=== PATIENT | female | born 1965 | race Caucasian/White ===

== ENCOUNTER → 2018-07-09 | Outpatient (CLI) | payer MEDICAID ==
[~2018-07-09] MED LIST: AZIT500T PO; BENZ0.5T3 PO; CRB200T PO; DIVA125T3 PO; DULO30CA PO; HYDR-3583 PO; HYDR-4226 PO; LURA40TA PO; LVT.1T PO; MEDR150D4 IM; MOTRIN 600MG PF; ONDA8TAB9 PO; ONDN4T PO; OXCA300T PO; RISP4TAB PO; RISP4TAB34 PO
--- NOTE | 2018-07-09 12:00 | Diagnostic Imaging Report ---
INDICATION: Routine screening. COMPARISON: Comparison is made with prior mammograms from 08/16/2016 and 06/14/2015. TECHNIQUE: 2D and 3D bilateral screening mammography was performed with computer-aided detection (CAD) system. FINDINGS: Scattered fibroglandular densities are identified bilaterally. The parenchymal pattern is stable. No dominant mass or malignant-appearing microcalcifications are seen. There are benign calcifications bilaterally. The axillae are unremarkable. IMPRESSION: No mammographic features suspicious for malignancy are identified. ACR BI-RADS Category 2: Benign findings. Result letter will be mailed to the patient. Note: At least 10% of breast cancer is not imaged by mammography. Dictated by: Dictated on workstation # [id number]
== END ==
LOC: RAD 09:26
PROVIDERS: ATTEND Nurse Practitioner Community Health
DX: Z12.31 Encounter for screening mammogram for malignant neoplasm of breast (principal)
CPT/HCPCS: 77067

== ENCOUNTER → 2019-07-21 | Outpatient (CLI) | payer MEDICAID ==
--- NOTE | 2019-07-21 15:36 | Diagnostic Imaging Report ---
INDICATION: Routine screening. COMPARISON: Comparison is made with prior mammograms from 07/09/2018 and 08/16/2016. 2-D and 3-D bilateral screening mammography was performed. The current study was also evaluated with a Computer Aided Detection (CAD) system. 3-D tomosynthesis was also performed and reviewed. FINDINGS: Scattered fibroglandular densities are identified bilaterally. There are benign calcifications bilaterally. No mass or malignant-appearing microcalcifications are seen. Axillae are unremarkable. IMPRESSION: No mammographic features suspicious for malignancy are identified. ACR BI-RADS Category 2: Benign findings. Result letter will be mailed to the patient. Note: At least 10% of breast cancer is not imaged by mammography. Dictated by: Dictated on workstation # [id number]
== END ==
LOC: RAD 13:07
PROVIDERS: ATTEND Nurse Practitioner Community Health
DX: Z12.31 Encounter for screening mammogram for malignant neoplasm of breast (principal)
CPT/HCPCS: 77067

== ENCOUNTER → 2020-08-09 | Outpatient (CLI) | payer MEDICAID ==
--- NOTE | 2020-08-10 09:50 | Diagnostic Imaging Report ---
INDICATION: Routine screening. COMPARISON: 07/21/2019 and 07/09/2018. TECHNIQUE: 2D and 3D bilateral screening mammography was performed with CAD. FINDINGS: Scattered fibroglandular densities are identified bilaterally. The parenchymal pattern is stable. There are benign calcifications in both breasts. No mass or malignant appearing microcalcifications are seen. The axillae are unremarkable. IMPRESSION: No mammographic features suspicious for malignancy are identified. ACR BI-RADS Category 2: Benign findings. Result letter will be mailed to the patient. Note: At least 10% of breast cancer is not imaged by mammography. Dictated by: Dictated on workstation # [id number]
== END ==
LOC: RAD 13:45
PROVIDERS: ATTEND Nurse Practitioner Community Health
DX: Z12.31 Encounter for screening mammogram for malignant neoplasm of breast (principal)
CPT/HCPCS: 77063; 77067

== ENCOUNTER → 2022-05-25 | Outpatient (CLI) | payer MEDICAID ==
--- NOTE | 2022-05-25 13:16 | Diagnostic Imaging Report ---
INDICATION: RT ANKLE PAIN AND EDEMA COMPARISON: None. FINDINGS: 3 views of the right ankle were obtained. There is no acute fracture or dislocation. No focal osseous lesions are seen. There is moderate lateral soft tissue swelling. There are no radiopaque foreign bodies. IMPRESSION: 1. Moderate lateral soft tissue swelling, but no radiographic evidence of acute fracture or dislocation of the right ankle. Dictated by: Dictated on workstation # [id number]
== END ==
LOC: RAD 11:01
PROVIDERS: ATTEND Nurse Practitioner Family
DX: M25.571 Pain in right ankle and joints of right foot (principal); R60.0 Localized edema
CPT/HCPCS: 73610

== ENCOUNTER 2022-10-03 14:35 | Emergency (ER) | payer MEDICAID ==
[~2022-10-03] VITALS: Ht 170.1 cm; Wt 52.1 kg
[2022-10-03 16:00] LABS: BILIRUBIN,URINE NEGATIVE (NEGATIVE); CLARITY,URINE SL CLOUDY; COLOR,URINE YELLOW; GLUCOSE, URINE (UA) NEGATIVE (NEGATIVE); KETONES,URINE TRACE (NEGATIVE); LEUKOCYTE ESTERASE ,URINE NEGATIVE (NEGATIVE); NITRITE,URINE NEGATIVE (NEGATIVE); PH,URINE 5.5 (5-9); PROTEIN,URINE NEGATIVE (NEGATIVE)
[2022-10-03 16:03] LABS: ALBUMIN 3.6 GM/DL (3.2-4.5); POTASSIUM 4.9 MMOL/L (3.6-5.0)
[2022-10-03 16:04] LABS: CALCIUM 9.3 MG/DL (8.5-10.1)
[2022-10-03 16:05] LABS: TOTAL PROTEIN 7.1 GM/DL (6.4-8.2)
[2022-10-03 16:06] LABS: HEMOGLOBIN 10.5 g/dL (11.5-16.0); MONOCYTES # (AUTO) 0.2 10^3/uL (0.0-1.0)
[2022-10-03 16:07] LABS: BACTERIA,URINE NEGATIVE /HPF; BASOPHILS % (AUTO) 0 % (0-10); BILIRUBIN,TOTAL 0.2 MG/DL (0.1-1.0); EOSINOPHILS % (AUTO) 2 % (0-10); HEMATOCRIT 34 % (35-52); LYMPHOCYTES % (AUTO) 51 % (12-44); MEAN CORPUSCULAR HEMOGLOBIN 29 pg (25-34); MEAN CORPUSCULAR HGB CONC 31 g/dL (32-36); MEAN CORPUSCULAR VOLUME 93 fL (80-99); MEAN PLATELET VOLUME 12.2 fL (9.0-12.2); MONOCYTES % (AUTO) 10 % (0-12); NEUTROPHILS # (AUTO) 0.7 10^3/uL (1.8-7.8); NEUTROPHILS % (AUTO) 37 % (42-75); SQUAMOUS EPITHELIAL CELL,UR 0-2 /HPF
[2022-10-03 16:08] LABS: PLATELET COUNT 57 10^3/uL (130-400)
[2022-10-03 16:09] LABS: CREATININE SERUM 1.08 MG/DL (0.60-1.30)
[2022-10-03 16:13] LABS: BAND NEUTROPHILS 0 %; BASOPHILS % (MANUAL) 0 %; EOSINOPHILS % (MANUAL) 0 %; LYMPHOCYTES % (MANUAL) 52 %; MONOCYTES % (MANUAL) 14 %; NEUTROPHILS % (MANUAL) 34 %; POLYCHROMASIA SLIGHT
[2022-10-03 16:14] LABS: HYPOCHROMASIA SLIGHT; MICROCYTOSIS SLIGHT; TARGET CELLS SLIGHT
--- NOTE | 2022-10-03 17:13 | ED General ---
General Chief Complaint: - Reproductive Stated Complaint: ABD PAIN Nursing Triage Note: ARRIVES FROM [facility] WITH SYMPTOMS OF FREQUENT URINATION AND CHANGE IN MENTAL STATUS. CAREGIVER STATES PATIENT HAS NOT BEEN ACTING HERSELF SINCE YESTERDAY, HAS BEEN URINATING FREQUENTLY, ALSO HAS A DECREASED APPETITE Source of Information: Patient Exam Limitations: No Limitations History of Present Illness Date Seen by Provider: Oct 03, 2022 Time Seen by Provider: 14:50 Initial Comments Patient is a 57-year-old female who presents to the emergency department along with her caregiver for evaluation of frequent urination, change in mental status, and some mild generalized weakness that began yesterday. Caregiver states patient has also had a decreased appetite. They states she commonly urinates frequently but this has been much more often than normal over the last 24 hours. Patient has not had any nausea/vomiting/diarrhea, fever, URI symptoms. Patient is still ambulatory although she does seem to walk slightly more unsteady and slower than normal. Patient does have a history of MR and schizophrenia. Caregiver states patient is typically pretty independent and does not require much assistance if any with ambulation. Allergies and Home Medications Allergies Coded Allergies: Penicillins (Verified Allergy, Unknown, 12/20/15) diphenhydramine HCl (Verified Allergy, Unknown, 12/20/15) Uncoded Allergies: chlorine (Allergy, Unknown, 12/20/15) Patient Home Medication List Home Medication List Reviewed: Yes Carbamazepine (Tegretol) 200 Mg Tablet, 1 TAB PO BID, (Reported) Entered as Reported by: AMARJIT FLORES on 04/03/12 1113 Divalproex Sodium (Divalproex Sodium) 125 Mg Tablet.dr, 5 CAP PO BID, (Reported) Entered as Reported by: AVTAR BRAND on 01/20/12 1216 Hydrocodone Bit/Acetaminophen (Lortab 5 Mg) 1 Tab Tab, 1-2 EA PO Q 4 - 6 HR PRN, (Reported) Entered as Reported by: RUPALI SHINE on 04/10/12 1136 Hydrocodone/Acetaminophen (Hydrocodone/Acetaminophen 5 MG/325 MG TAB) 1 Each Tablet, 1 EACH PO Q4H PRN for PAIN Prescribed by: TOÑO LIRIANO on 12/20/15 1659 Levothyroxine Sodium (Levothyroxine 100 Mcg Tab) 100 Mcg Tablet, 1 EACH PO DAILY AT 4 PM, (Reported) Entered as Reported by: AVTAR BRAND on 01/20/12 1216 Medroxyprogesterone Acet (Medroxyprogesterone Acetate) 150 Mg/1 Ml Disp.syrin, 150 MG IM Q 3 months, (Reported) Entered as Reported by: AVTAR BRAND on 01/20/12 1212 Ondansetron (Zofran Odt) 8 Mg Tab.rapdis, 8 MG PO Q6H PRN for NAUSEA/VOMITING Prescribed by: TOÑO LIRIANO on 12/20/15 1659 Ondansetron Hcl (Zofran) 4 Mg Tab, 1 TAB PO Q6H PRN, (Reported) Entered as Reported by: AMARJIT FLORES on 04/03/12 1113 Oxybutynin Chloride (Oxybutynin Chloride) 5 Mg Tablet, 5 MG PO BID Prescribed by: Eusebio Le on 10/03/22 1727 Risperidone (Risperdal) 4 Mg Tab.rapdis, 4 MG PO DAILY PRN, (Reported) Entered as Reported by: AVTAR BRAND on 01/20/12 1218 Risperidone (Risperidone) 4 Mg Tablet, 4 MG PO BID, (Reported) Entered as Reported by: AMARJIT FLORES on 04/03/12 1113 [Motrin 600MG] , 600 MG PF Q6H, (Reported) Entered as Reported by: RUPALI SHINE on 04/10/12 1138 Review of Systems Review of Systems Constitutional: no symptoms reported Respiratory: no symptoms reported Cardiovascular: no symptoms reported Gastrointestinal: no symptoms reported Genitourinary: see HPI, frequency Skin: no symptoms reported Psychiatric/Neurological: No Symptoms Reported Hematologic/Lymphatic: No Symptoms Reported Immunological/Allergic: no symptoms reported Past Zedcshp-Mhktwz-Vcmnqd Hx Patient Social History Tobacco Use?: No Use of E-Cig and/or Vaping dev: No Substance use?: No Alcohol Use?: No Pt feels they are or have been: No Immunizations Up To Date Influenza Vaccine Up-to-Date: No; Not Current First/Initial COVID19 Vaccinat: 2020 Second COVID19 Vaccination José Antonio: 2020 Past Medical History Surgery/Hospitalization HX: , SCHITZOPHRENIA Reproductive Disorders: No Physical Exam Vital Signs Vital Signs - First Documented 10/03/22 14:50 Temp 35.6 Pulse 75 Resp 18 B/P (MAP) 129/71 (90) Pulse Ox 95 O2 Delivery Room Air Capillary Refill : Less Than 3 Seconds Height, Weight, BMI Height: 5'1.00" Weight: 168lbs. 6.0oz. [id number]; 18.00 BMI Method:Stated General Appearance: No Apparent Distress, WD/WN HEENT: PERRL/EOMI, TMs Normal, Normal ENT Inspection, Pharynx Normal Respiratory: Chest Non Tender, Lungs Clear, Normal Breath Sounds, No Accessory Muscle Use, No Respiratory Distress Cardiovascular: Regular Rate, Rhythm Neurologic/Psychiatric: Alert, Oriented x3, No Motor/Sensory Deficits, Normal Mood/Affect Skin: Normal Color, Warm/Dry Progress/Results/Core Measures Suspected Sepsis SIRS Temperature: Pulse: 75 Respiratory Rate: 18 Laboratory Tests 10/03/22 15:56: White Blood Count 2.0L Blood Pressure 129 /71 Mean: 90 Laboratory Tests 10/03/22 15:56: Creatinine 1.08, Platelet Count 57L, Total Bilirubin 0.2 Results/Orders Lab Results Laboratory Tests Test 10/03/22 15:56 Range/Units White Blood Count 2.0 L 4.3-11.0 10^3/uL Red Blood Count 3.62 L 3.80-5.11 10^6/uL Hemoglobin 10.5 L 11.5-16.0 g/dL Hematocrit 34 L 35-52 % Mean Corpuscular Volume 93 80-99 fL Mean Corpuscular Hemoglobin 29 25-34 pg Mean Corpuscular Hemoglobin Concent 31 L 32-36 g/dL Red Cell Distribution Width 16.3 H 10.0-14.5 % Platelet Count 57 L 130-400 10^3/uL Mean Platelet Volume 12.2 9.0-12.2 fL Immature Granulocyte % (Auto) 1 % Neutrophils (%) (Auto) 37 L 42-75 % Lymphocytes (%) (Auto) 51 H 12-44 % Monocytes (%) (Auto) 10 0-12 % Eosinophils (%) (Auto) 2 0-10 % Basophils (%) (Auto) 0 0-10 % Neutrophils # (Auto) 0.7 L 1.8-7.8 10^3/uL Lymphocytes # (Auto) 1.0 1.0-4.0 10^3/uL Monocytes # (Auto) 0.2 0.0-1.0 10^3/uL Eosinophils # (Auto) 0.0 0.0-0.3 10^3/uL Basophils # (Auto) 0.0 0.0-0.1 10^3/uL Immature Granulocyte # (Auto) 0.0 0.0-0.1 10^3/uL Neutrophils % (Manual) 34 % Lymphocytes % (Manual) 52 % Monocytes % (Manual) 14 % Eosinophils % (Manual) 0 % Basophils % (Manual) 0 % Band Neutrophils 0 % Percent Immature Platelet Fraction 11.4 H 0.0-7.6 % Polychromasia SLIGHT Hypochromasia SLIGHT Microcytosis SLIGHT Target Cells SLIGHT Urine Color YELLOW Urine Clarity SL CLOUDY Urine pH 5.5 5-9 Urine Specific [place] 1.025 H 1.016-1.022 Urine Protein NEGATIVE NEGATIVE Urine Glucose (UA) NEGATIVE NEGATIVE Urine Ketones TRACE H NEGATIVE Urine Nitrite NEGATIVE NEGATIVE Urine Bilirubin NEGATIVE NEGATIVE Urine Urobilinogen 0.2 < = 1.0 MG/DL Urine Leukocyte Esterase NEGATIVE NEGATIVE Urine RBC (Auto) NEGATIVE NEGATIVE Urine RBC NONE /HPF Urine WBC NONE /HPF Urine Squamous Epithelial Cells 0-2 /HPF Urine Crystals NONE /LPF Urine Bacteria NEGATIVE /HPF Urine Casts NONE /LPF Urine Mucus NEGATIVE /LPF Urine Culture Indicated NO Sodium Level 145 135-145 MMOL/L Potassium Level 4.9 3.6-5.0 MMOL/L Chloride Level 109 H 98-107 MMOL/L Carbon Dioxide Level 28 21-32 MMOL/L Anion Gap 8 5-14 MMOL/L Blood Urea Nitrogen 31 H 7-18 MG/DL Creatinine 1.08 0.60-1.30 MG/DL Estimat Glomerular Filtration Rate 60 BUN/Creatinine Ratio 29 Glucose Level 71 70-105 MG/DL Calcium Level 9.3 8.5-10.1 MG/DL Corrected Calcium 9.6 8.5-10.1 MG/DL Total Bilirubin 0.2 0.1-1.0 MG/DL Aspartate Amino Transf (AST/SGOT) 73 H 5-34 U/L Alanine Aminotransferase (ALT/SGPT) 78 H 0-55 U/L Alkaline Phosphatase 122 40-136 U/L Total Protein 7.1 6.4-8.2 GM/DL Albumin 3.6 3.2-4.5 GM/DL My Orders Orders - EUSEBIO LE [employer]ICER Cbc And Manual Diff (10/03/22 15:52) Comprehensive Metabolic Panel (10/03/22 15:52) Ua Culture If Indicated (10/03/22 15:52) Vital Signs/I&O 10/03/22 10/03/22 14:50 17:35 Temp 35.6 Pulse 75 76 Resp 18 18 B/P (MAP) 129/71 (90) 139/90 Pulse Ox 95 96 O2 Delivery Room Air Room Air Capillary Refill : Less Than 3 Seconds Blood Pressure Mean: 90 Progress Note : Progress Note Patient is nontoxic and well-hydrated on exam. Vital signs are reassuring. No adventitious lung sounds or increased work of breathing noted. No abdominal tenderness to palpation. Abdomen is not distended or rigid. Patient is able to answer questions. She is ambulatory without assistance. Orders placed for CBC, CMP, and urinalysis. CBC notable for leukopenia and thrombocytopenia. Patient is mildly anemic. Patient is neutropenic but ANC is not less than 500. CMP largely unremarkable. There are no systemic concerns for any infectious process. Urinalysis does not show any obvious evidence of UTI. I did speak with Dr. Alex with hematology who states patient would definitely need to follow-up with PCP in the near future for a recheck of her labs. She did not give any other acute recommendations. We will give patient a short course of oxybutynin to see if this improves the urinary frequency. I gave caregiver very strict return precautions for any worsening symptoms. Discussed importance of follow-up with PCP. Caregiver verbalized understanding. Departure Impression Primary Impression: Urinary frequency Additional Impressions: Leukopenia Qualified Codes: D72.819 - Decreased white blood cell count, unspecified Thrombocytopenia Disposition: HOME, SELF-CARE Condition: Stable Departure-Patient Inst. Decision time for Depature: 17:10 Referrals: KIRAN HORTA MD (PCP/Family) Primary Care Physician Patient Instructions: Essential Thrombocythemia, Neutropenia (DC) Scripts Oxybutynin Chloride (Oxybutynin Chloride) 5 Mg Tablet 5 MG PO BID for 3 Days, #6 TAB 0 Refills Prov: EUSEBIO LE APRN 10/03/22 EUSEBIO LE APRN Oct 03, 2022 17:13
[2022-10-03] MEDS ORDERED: OXYB5TAB13 PO (17:27)
[2022-10-03 17:35] VITALS: BP 139/90
== END 2022-10-03 17:35 | disposition home or self-care (01) ==
LOC: EDUNIT# 14:35 → ER 14:37
DX: R35.0 Frequency of micturition (principal); D72.819 Decreased white blood cell count, unspecified; D69.6 Thrombocytopenia, unspecified
CPT/HCPCS: 36415; 80053; 81000; 85007; 85027; 99282

== ENCOUNTER 2022-10-05 13:39 | Inpatient (IN) | payer MEDICAID ==
[~2022-10-05] VITALS: Ht 226 cm; Wt 52.0 kg
[~2022-10-05 13:39] MED LIST changes: +OXYB5TAB13 PO
[2022-10-05] MEDS ORDERED: CEFEPIME INJECTION 1,000 MG in NS (IVPB) 50 ML IV ONE (14:00)
--- NOTE | 2022-10-05 14:04 | ED General ---
General Stated Complaint: UNABLE TO STAND | DIZZY | FALLING DOWN Source of Information: Patient, Caregiver Exam Limitations: No Limitations (EUSEBIO LE APRN) History of Present Illness Date Seen by Provider: Oct 05, 2022 Time Seen by Provider: 13:50 Initial Comments Patient is a 57-year-old female with a past medical history of MR and schizo phrenia who presents to the emergency department with progressively worsening generalized weakness, confusion, and persistent urinary frequency. Patient was seen in this emergency department by me 2 days ago for some mildly altered mental status as well as urinary frequency according to patient's caregiver. At that time her laboratory evaluation was notable for leukopenia and thr ombocytopenia. Hematology was consulted and they recommend patient closely follow-up with PCP for repeat laboratory evaluation. Patient's urinalysis did not reveal any evidence of infection or other acute abnormality. Caregiver states patient has been significantly weaker today and has fallen 2 or 3 times. Patient did not hit her head and did not sustain any loss of consciousness. They were evaluated by patient's PCP yesterday where repeat blood work was obtained and an appointment was made to follow-up with hematology next week. (EUSEBIO LE APRN) Allergies and Home Medications Allergies Coded Allergies: Penicillins (Verified Allergy, Unknown, 12/20/15) diphenhydramine HCl (Verified Allergy, Unknown, 12/20/15) Uncoded Allergies: chlorine (Allergy, Unknown, 12/20/15) Patient Home Medication List Home Medication List Reviewed: Yes (EUSEBIO LE APRN) Carbamazepine (Tegretol) 200 Mg Tablet, 1 TAB PO BID, (Reported) Entered as Reported by: AMARJIT FLORES on 04/03/12 1113 Last Action: Continued Divalproex Sodium (Divalproex Sodium ER) 500 Mg Tab.er.24h, 500 MG PO DAILY, (Reported) Entered as Reported by: Tooite Marie on 10/05/221851 Last Action: Converted Divalproex Sodium (Divalproex Sodium ER) 500 Mg Tab.er.24h, 1,000 MG PO HS, (Reported) Entered as Reported by: Tootie Marie on 10/05/221851 Last Action: Converted Levothyroxine Sodium (Levothyroxine Sodium) 75 Mcg Tablet, 75 MCG PO DAILY, (Reported) Entered as Reported by: Tootie Marie on 10/05/221851 Last Action: Continued Oxybutynin Chloride (Oxybutynin Chloride) 5 Mg Tablet, 5 MG PO BID Prescribed by: Eusebio Le on 10/03/221726 Last Action: Continued Oxybutynin Chloride (Oxybutynin Chloride) 5 Mg Tablet, 5 MG PO DAILY, (Reported) Entered as Reported by: Tootie Marie on 10/05/221851 Last Action: Continued Risperidone (Risperidone) 3 Mg Tablet, 3 MG PO BID, (Reported) Entered as Reported by: Tootie Marie on 10/05/221851 Last Action: Converted Sertraline HCl (Sertraline HCl) 100 Mg Tablet, 100 MG PO DAILY, (Reported) Entered as Reported by: Tootie Marie on 10/05/221851 Last Action: Continued Trazodone HCl (Trazodone HCl) 150 Mg Tablet, 150 MG PO HS, (Reported) Entered as Reported by: Tootie Marie on 10/05/221851 Last Action: Continued Discontinued Medications Divalproex Sodium (Divalproex Sodium) 125 Mg Tablet.dr, 5 CAP PO BID, (Reported) Discontinued Reason: New Order Entered as Reported by: AVTAR BRAND on 01/20/126 Last Action: Discontinued Hydrocodone Bit/Acetaminophen (Lortab 5 Mg) 1 Tab Tab, 1-2 EA PO Q 4 - 6 HR PRN, (Reported) Discontinued Reason: No Longer Taking Entered as Reported by: RUPALI SHINE on 04/10/12 1136 Last Action: Discontinued Hydrocodone/Acetaminophen (Hydrocodone/Acetaminophen 5 MG/325 MG TAB) 1 Each Tablet, 1 EACH PO Q4H PRN for PAIN Discontinued Reason: No Longer Taking Prescribed by: TOÑO LIRIANO on 12/20/15 3799 Last Action: Discontinued Levothyroxine Sodium (Levothyroxine 100 Mcg Tab) 100 Mcg Tablet, 1 EACH PO DAILY AT 4 PM, (Reported) Discontinued Reason: New Order Entered as Reported by: AVTAR BRAND on 01/20/126 Last Action: Discontinued Medroxyprogesterone Acet (Medroxyprogesterone Acetate) 150 Mg/1 Ml Disp.syrin, 150 MG IM Q 3 months, (Reported) Discontinued Reason: No Longer Taking Entered as Reported by: AVTAR BRAND on 01/20/12 1212 Last Action: Discontinued Ondansetron (Zofran Odt) 8 Mg Tab.rapdis, 8 MG PO Q6H PRN for NAUSEA/VOMITING Discontinued Reason: No Longer Taking Prescribed by: TOÑO LIRIANO on 12/20/15 1659 Last Action: Discontinued Ondansetron Hcl (Zofran) 4 Mg Tab, 1 TAB PO Q6H PRN, (Reported) Discontinued Reason: No Longer Taking Entered as Reported by: AMARJIT FLORES on 04/03/12 1113 Last Action: Discontinued Risperidone (Risperdal) 4 Mg Tab.rapdis, 4 MG PO DAILY PRN, (Reported) Discontinued Reason: No Longer Taking Entered as Reported by: AVTAR BRAND on 01/20/12 1218 Last Action: Discontinued Risperidone (Risperidone) 4 Mg Tablet, 4 MG PO BID, (Reported) Discontinued Reason: New Order Entered as Reported by: AMARJIT FLORES on 04/03/12 1113 Last Action: Discontinued [Motrin 600MG] , 600 MG PF Q6H, (Reported) Discontinued Reason: No Longer Taking Entered as Reported by: RUPALI SHINE on 04/10/12 1138 Last Action: Discontinued Review of Systems Review of Systems Constitutional: see HPI, chills, weakness EENTM: no symptoms reported Respiratory: no symptoms reported Cardiovascular: no symptoms reported Gastrointestinal: no symptoms reported Genitourinary: no symptoms reported Musculoskeletal: no symptoms reported Skin: no symptoms reported Psychiatric/Neurological: No Symptoms Reported Hematologic/Lymphatic: No Symptoms Reported Immunological/Allergic: no symptoms reported (EUSEBIO LE APRN) Past Zotirto-Wetyzt-Fjdfoj Hx Immunizations Up To Date First/Initial COVID19 Vaccinat: 2020 Second COVID19 Vaccination José Antonio: 2020 (EUSEBIO LE APRN) Past Medical History Surgery/Hospitalization HX: MR, SCHITZOPHRENIA Reproductive Disorders: No (EUSEBIO LE APRN) Physical Exam Vital Signs Vital Signs - First Documented 10/05/22 13:45 Temp 33.6 Pulse 85 Resp 18 B/P (MAP) 131/79 (96) Pulse Ox 97 (EVELYN FLORES MD) Vital Signs Capillary Refill : (EUSEBIO LE APRN) Height, Weight, BMI Height: 5'1.00" Weight: 168lbs. 6.0oz. 76.914074vc; 18.00 BMI Method:Stated General Appearance: No Apparent Distress, WD/WN HEENT: PERRL/EOMI, TMs Normal, Normal ENT Inspection, Pharynx Normal Neck: Full Range of Motion, Normal Inspection, Non Tender, Supple Respiratory: Chest Non Tender, Lungs Clear, Normal Breath Sounds, No Accessory Muscle Use, No Respiratory Distress Neurologic/Psychiatric: Alert, Oriented x3, No Motor/Sensory Deficits, Normal Mood/Affect Skin: Normal Color, Warm/Dry (EUSEBIO LE APRN) Focused Exam Lactate Level 10/05/22 14:00: Lactic Acid Level 0.70 (EVELYN FLORES MD) Lactic Acid Level Laboratory Tests Test 10/05/22 14:00 Lactic Acid Level 0.70 MMOL/L (0.50-2.00) (EVELYN FLORES MD) Progress/Results/Core Measures Suspected Sepsis SIRS Temperature: Pulse: Respiratory Rate: Laboratory Tests 10/05/22 14:00: White Blood Count 2.3L Blood Pressure / Mean: 10/05/22 14:00: Lactic Acid Level 0.70 Laboratory Tests 10/05/22 14:00: Creatinine 1.05, INR Comment 1.0, Platelet Count 50L, Total Bilirubin 0.2 (EUSEBIO LE APRN) Results/Orders Lab Results Laboratory Tests Test 10/05/22 14:00 10/05/22 14:06 Range/Units White Blood Count 2.3 L 4.3-11.0 10^3/uL Red Blood Count 3.75 L 3.80-5.11 10^6/uL Hemoglobin 11.0 L 11.5-16.0 g/dL Hematocrit 35 35-52 % Mean Corpuscular Volume 93 80-99 fL Mean Corpuscular Hemoglobin 29 25-34 pg Mean Corpuscular Hemoglobin Concent 32 32-36 g/dL Red Cell Distribution Width 16.9 H 10.0-14.5 % Platelet Count 50 L 130-400 10^3/uL Mean Platelet Volume 12.5 H 9.0-12.2 fL Immature Granulocyte % (Auto) 0 % Neutrophils (%) (Auto) 49 42-75 % Lymphocytes (%) (Auto) 40 12-44 % Monocytes (%) (Auto) 9 0-12 % Eosinophils (%) (Auto) 1 0-10 % Basophils (%) (Auto) 0 0-10 % Neutrophils # (Auto) 1.2 L 1.8-7.8 10^3/uL Lymphocytes # (Auto) 0.9 L 1.0-4.0 10^3/uL Monocytes # (Auto) 0.2 0.0-1.0 10^3/uL Eosinophils # (Auto) 0.0 0.0-0.3 10^3/uL Basophils # (Auto) 0.0 0.0-0.1 10^3/uL Immature Granulocyte # (Auto) 0.0 0.0-0.1 10^3/uL Percent Immature Platelet Fraction 11.0 H 0.0-7.6 % Prothrombin Time 13.1 12.2-14.7 SEC INR Comment 1.0 0.8-1.4 Activated Partial Thromboplast Time 40 H 24-35 SEC Sodium Level 145 135-145 MMOL/L Potassium Level 5.4 H 3.6-5.0 MMOL/L Chloride Level 110 H 98-107 MMOL/L Carbon Dioxide Level 23 21-32 MMOL/L Anion Gap 12 5-14 MMOL/L Blood Urea Nitrogen 33 H 7-18 MG/DL Creatinine 1.05 0.60-1.30 MG/DL Estimat Glomerular Filtration Rate 62 BUN/Creatinine Ratio 31 Glucose Level 72 70-105 MG/DL Lactic Acid Level 0.70 0.50-2.00 MMOL/L Calcium Level 9.3 8.5-10.1 MG/DL Corrected Calcium 9.7 8.5-10.1 MG/DL Total Bilirubin 0.2 0.1-1.0 MG/DL Aspartate Amino Transf (AST/SGOT) 61 H 5-34 U/L Alanine Aminotransferase (ALT/SGPT) 68 H 0-55 U/L Alkaline Phosphatase 107 40-136 U/L Total Protein 7.1 6.4-8.2 GM/DL Albumin 3.5 3.2-4.5 GM/DL Valproic Acid (Depakene) Level 53.9 50.0-100.0 UG/ML Carbamazepine (Tegretol) Level 6.3 4.0-12.0 UG/ML Urine Color YELLOW Urine Clarity CLEAR Urine pH 5.5 5-9 Urine Specific Beyer 1.025 H 1.016-1.022 Urine Protein NEGATIVE NEGATIVE Urine Glucose (UA) NEGATIVE NEGATIVE Urine Ketones 1+ H NEGATIVE Urine Nitrite NEGATIVE NEGATIVE Urine Bilirubin NEGATIVE NEGATIVE Urine Urobilinogen 0.2 < = 1.0 MG/DL Urine Leukocyte Esterase NEGATIVE NEGATIVE Urine RBC (Auto) NEGATIVE NEGATIVE Urine RBC NONE /HPF Urine WBC 0-2 /HPF Urine Squamous Epithelial Cells 0-2 /HPF Urine Crystals NONE /LPF Urine Bacteria NEGATIVE /HPF Urine Casts NONE /LPF Urine Mucus SMALL H /LPF Urine Culture Indicated NO (EVELYN FLORES MD) Vital Signs/I&O 10/05/22 13:45 Temp 33.6 Pulse 85 Resp 18 B/P (MAP) 131/79 (96) Pulse Ox 97 10/06/22 00:00 Intake Total 50 ml Balance 50 ml (EVELYN FLORES MD) Vital Signs/I&O Capillary Refill : (EUSEBIO LE APRN) Progress Note : Progress Note Patient is nontoxic on exam. Vital signs are notable for hypothermia. No tachycardia or hypotension appreciated. Patient does require max assist to transition from the wheelchair to the bed. She is much weaker than she was on my exam 2 weeks ago. There is no focality to the weakness as it is generalized. Patient is still able to answer questions. No adventitious lung sounds or increased work of breathing noted. Abdominal exam is reassuring without focal provocation of pain with palpation. No abdominal rigidity or distention appreciated. Neck is supple without nuchal rigidity. Sepsis protocol initiated given patient's hypothermia and her being neutropenic at last visit. Orders were placed for CBC, CMP, urinalysis, coagulation studies, blood cultures, urine cultures, lactic acid, chest x-ray. Seen notable for leukopenia, neutropenia, thrombocytopenia. Leukopenia and neutropenia are actually slightly improved from 2 days ago. Thrombocytopenia slightly worse. Caregiver states patient did have a spontaneous nosebleed earlier today but this was quickly controlled and has not been an issue since. Caregiver denies seeing any bruising on the patient or noticing any active bleeding in the recent past. CMP largely unremarkable. Urinalysis does not reveal any findings concerning for infection. Coagulation studies are unremarkable. Chest x-ray reveals no acute abnormality. Lactic acid is not elevated. Give given her markedly increased weakness, hypothermia, and persistent blood dyscrasias, patient will be admitted to the hospital for further evaluation and treatment. Dr. Garnett with [facility] kindly agreed to admit the patient. I spoke with Dr. Low of hematology to make her aware of the patient's admission. She states she will consult on the patient during admission. Discussed plan of care with patient and caregiver and verbalization of understanding was given. (EUSEBIO LE APRN) Consults Consults : Consulting Physician: SHARMIN LOW MD Consults Notes Kindly agrees to see the patient in consultation while admitted (EUSEBIO LE APRN) Departure Impression Primary Impression: General weakness Additional Impressions: Leukopenia Qualified Codes: D70.9 - Neutropenia, unspecified Thrombocytopenia Disposition: HOME, SELF-CARE Condition: Stable Admissions Decision to Admit Reason: Admit from ER (General) Decision to Admit/Date: Oct 05, 2022 Time/Decision to Admit Time: 15:05 (EUSEBIO LE APRN) Departure-Patient Inst. Referrals: KIRAN HORTA MD (PCP/Family) Primary Care Physician ATTENDING PHYSICIAN NOTE: I was physically present as attending physician in the emergency department during the care of this patient, but I was not directly involved in the decision making or delivery of care for this patient. (EVELYN FLORES MD) EUSEBIO LE APRN Oct 05, 2022 14:04 EVELYN FLORES MD Oct 06, 2022 06:13
[2022-10-05 14:16] LABS: BILIRUBIN,URINE NEGATIVE (NEGATIVE); CLARITY,URINE CLEAR; COLOR,URINE YELLOW; GLUCOSE, URINE (UA) NEGATIVE (NEGATIVE); KETONES,URINE 1+ (NEGATIVE); LEUKOCYTE ESTERASE ,URINE NEGATIVE (NEGATIVE); NITRITE,URINE NEGATIVE (NEGATIVE); PH,URINE 5.5 (5-9); PROTEIN,URINE NEGATIVE (NEGATIVE)
[2022-10-05 14:16] LABS: BASOPHILS % (AUTO) 0 % (0-10); EOSINOPHILS % (AUTO) 1 % (0-10); HEMATOCRIT 35 % (35-52); LYMPHOCYTES # (AUTO) 0.9 10^3/uL (1.0-4.0); LYMPHOCYTES % (AUTO) 40 % (12-44); MEAN CORPUSCULAR HEMOGLOBIN 29 pg (25-34); MEAN CORPUSCULAR HGB CONC 32 g/dL (32-36); MEAN CORPUSCULAR VOLUME 93 fL (80-99); MEAN PLATELET VOLUME 12.5 fL (9.0-12.2); MONOCYTES # (AUTO) 0.2 10^3/uL (0.0-1.0); MONOCYTES % (AUTO) 9 % (0-12); NEUTROPHILS # (AUTO) 1.2 10^3/uL (1.8-7.8); NEUTROPHILS % (AUTO) 49 % (42-75); PLATELET COUNT 50 10^3/uL (130-400); WHITE BLOOD COUNT 2.3 10^3/uL (4.3-11.0)
[2022-10-05 14:24] LABS: WBC,URINE 0-2 /HPF
[2022-10-05 14:25] LABS: BACTERIA,URINE NEGATIVE /HPF; SQUAMOUS EPITHELIAL CELL,UR 0-2 /HPF
[2022-10-05 14:26] LABS: ALBUMIN 3.5 GM/DL (3.2-4.5)
[2022-10-05 14:27] LABS: POTASSIUM 5.4 MMOL/L (3.6-5.0)
[2022-10-05 14:28] LABS: CALCIUM 9.3 MG/DL (8.5-10.1)
[2022-10-05 14:29] LABS: TOTAL PROTEIN 7.1 GM/DL (6.4-8.2)
--- NOTE | 2022-10-05 14:29 | Diagnostic Imaging Report ---
CHEST 1 VIEW, AP/PA ONLY Indication: Sepsis Comparison: 12/20/2015 Findings: No focal airspace disease in the visualized lungs. No pleural effusion or pneumothorax. Normal cardiomediastinal silhouette. Impression: 1. No acute cardiopulmonary process by portable radiography. Dictated by: Dictated on workstation # [id number]
[2022-10-05 14:31] LABS: BILIRUBIN,TOTAL 0.2 MG/DL (0.1-1.0)
[2022-10-05 14:33] LABS: CREATININE SERUM 1.05 MG/DL (0.60-1.30)
[2022-10-05 14:44] LABS: PROTHROMBIN TIME PATIENT 13.1 SEC (12.2-14.7)
[2022-10-05] MEDS ORDERED: LACTATED RINGERS 1,000 ML IV SCH (14:45)
--- NOTE | 2022-10-05 15:56 | History & Physical-Hospitalist ---
History of Present Illness HPI/Chief Complaint Pt is a 57[facility] who presented to the ER due to weakness. She was seen in the ER 2 days ago due to similar symptoms and was found to be pancytopenic. She was ambulatory though and discharged back to the home. She came into today because the weakness has worsened and she had a fall as well. Caregiver reports that she did not hit her head and it was witnessed. She hit her back only. Patient does complain of some mild back pain there. Her labs again reveal a pancytopenic picture but essentially stable from last visit. She was was unable to ambulate and is being admitted for further management. Caregive reports she has had very poor oral intake as well and those noticed some nasal discharge 2 days ago when she woke up but she hasn't noticed any other runny nose or respiratory symptoms. Exam Limitations: clinical condition Date Seen 10/05/22 Time Seen by a Provider: 15:47 Attending Physician Raoul Barber MD PCP Admitting Physician: Trudy Swift MD Attending Physician: Trudy Swift MD Referring Physician SHARMIN LOW MD Date of Admission Oct 05, 2022 at 15:19 Home Medications & Allergies Home Medications Reviewed patient Home Medication Reconciliation performed by pharmacy medication reconciliations domestic technician and/or nursing. Patients Allergies have been reviewed. Allergies Allergies Coded Allergies Penicillins (Verified Allergy, Unknown, 12/20/15) diphenhydramine HCl (Verified Allergy, Unknown, 12/20/15) Uncoded Allergies chlorine ( Allergy, Unknown, 12/20/15) Past Wfadhcm-Hjggco-Whnguo Hx Patient Social History Marrital Status: single Employed/Student: unemployed Tobacco Use?: No Substance use?: No Alcohol Use?: No Pt feels they are or have been: No Immunizations Up To Date Date of Influenza Vaccine: Jun 09, 2011 First/Initial COVID19 Vaccinat: 2020 Second COVID19 Vaccination José Antonio: 2020 Date of Pneumonia Vaccine: Apr 09, 2008 Current Status Advance Directives: No Communicates: Verbally Primary Language: Micronesian Preferred Spoken Language: Micronesian Is interpretation needed?: No Implanted or Applied Medical D: None Past Medical History Seizure Disorder Family Medical History Reviewed Nursing Family Hx Review of Systems Constitutional: see HPI Physical Exam Physical Exam Vital Signs Vital Signs - First Documented 10/05/22 10/05/22 13:45 16:44 Temp 33.6 Pulse 85 Resp 18 B/P (MAP) 131/79 (96) Pulse Ox 97 O2 Delivery Room Air Capillary Refill : Less Than 3 Seconds Height, Weight, BMI Height: 5'1.00" Weight: 168lbs. 6.0oz. 76.383051ka; 18.00 BMI Method:Stated General Appearance: No Apparent Distress, Chronically ill, Thin HEENT: PERRL/EOMI; No Scleral Icterus (L), No Scleral Icterus (R); Other (dry oral mucosa) Respiratory: Lungs Clear, No Accessory Muscle Use, No Respiratory Distress Cardiovascular: Regular Rate, Rhythm, No JVD, No Murmur Neurologic/Psychiatric: Alert, Other (answers some questions, seems appropriate) Results Results/Procedures Labs Laboratory Tests 10/05/22 14:00 10/05/22 17:16 10/06/22 05:17 10/07/22 05:55 Patient resulted labs reviewed. Imaging: Reviewed Imaging Report Imaging [facility] [place] [facility] REC[facility] [id number] PT STATUS: REG ER : 1965 PHYSICIAN: CK WADSWORTH APRN ADMIT DATE: 10/05/22/ER Signed Date of Exam:10/05/22 CHEST 1 VIEW, AP/PA ONLY CHEST 1 VIEW, AP/PA ONLY Indication: Sepsis Comparison: 12/20/2015 Findings: No focal airspace disease in the visualized lungs. No pleural effusion or pneumothorax. Normal cardiomediastinal silhouette. Impression: 1. No acute cardiopulmonary process by portable radiography. Dictated by: Dictated on workstation # [id number] Dict: 10/05/22 1427 Trans: 10/05/22 142 [facility] [id number] Interpreted by: EFFIE TAN MD Electronically signed by: EFFIE TAN MD 10/05/22 142 Assessment/Plan Admission Diagnosis generalized weakness Admission Status: Inpatient Order (span 2 midnights) Reason for Inpatient Admission: see below Assessment and Plan generalized weakness Panctyopenia Dehydration Failed outpatient management after ER visit 2 days ago Will swab for COVID and Flu -had COVID in August Check depakote and carbamazepine levels Spoke with Dr Barber and they were checked recently and WNL to low but ps ych adjusted them since then PT/OT IVF Heme/Onc consulted, appreciate recs Will get peripheral smear Diagnosis/Problems Diagnosis/Problems (1) General weakness Status: Acute (2) Leukopenia Status: Acute Qualifiers: Leukopenia type: neutropenia Neutropenia type: unspecified Qualified Codes: D70.9 - Neutropenia, unspecified (3) Thrombocytopenia Status: Acute TRUDY SIWFT MD Oct 05, 2022 15:56
[2022-10-05 16:12] LABS: VALPROIC ACID 53.9 UG/ML (50.0-100.0)
[2022-10-05 16:13] LABS: CARBAMAZEPINE (TEGRETOL) 6.3 UG/ML (4.0-12.0)
[2022-10-05] MEDS ORDERED: ONDANSETRON 4 MG/2 ML (SDV) Z0FRAN IV PRN (16:45)
[2022-10-05] MEDS ORDERED: ANTACID SUSP 30 ML UDC (MYLANTA) PO PRN (16:45)
[2022-10-05] MEDS ORDERED: CALCIUM CARBONATE 500 MG (TUMS) TAB.CHEW PO PRN (16:45)
[2022-10-05] MEDS ORDERED: polyethylene glycoL POWDER 17 GM (MIRALAX) PACK PO PRN (16:45)
[2022-10-05] MEDS ORDERED: ACETAMINOPHEN 325 MG TABLET PO PRN (16:45)
[2022-10-05] MEDS: NS IV 1000 ML 1,000 ML IV SCH (17:28)
[2022-10-05] MEDS: cefTRIAXone 1 GM PRE-MIX 50 ML IV SCH (17:28)
[2022-10-05 17:37] LABS: ABSOLUTE RETIC # 67 10e9/uL (24-90); BASOPHILS % (AUTO) 0 % (0-10); EOSINOPHILS % (AUTO) 1 % (0-10); HEMATOCRIT 32 % (35-52); HEMOGLOBIN 10.1 g/dL (11.5-16.0); LYMPHOCYTES % (AUTO) 41 % (12-44); MEAN CORPUSCULAR HEMOGLOBIN 29 pg (25-34); MEAN CORPUSCULAR HGB CONC 32 g/dL (32-36); MEAN CORPUSCULAR VOLUME 93 fL (80-99); MONOCYTES # (AUTO) 0.3 10^3/uL (0.0-1.0); MONOCYTES % (AUTO) 11 % (0-12); NEUTROPHILS # (AUTO) 1.2 10^3/uL (1.8-7.8); NEUTROPHILS % (AUTO) 46 % (42-75); PLATELET COUNT 45 10^3/uL (130-400); RETICULOCYTE % 1.93 % (0.50-2.40); WHITE BLOOD COUNT 2.5 10^3/uL (4.3-11.0)
[2022-10-05 17:40] VITALS: BP 143/74
[2022-10-05] MEDS ORDERED: FLU QUADRIvalent (6 months+) 60 mcg/0.5 ml 2022-23 (Fluzone) IM ONE (17:45)
[2022-10-05 18:06] LABS: BAND NEUTROPHILS 5 %; LYMPHOCYTES % (MANUAL) 48 %; MONOCYTES % (MANUAL) 12 %; NEUTROPHILS % (MANUAL) 32 %; REACTIVE LYMPHOCYTES 3 %; STOMATOCYTES SLIGHT
[2022-10-05] MEDS ORDERED: LEVO75TA6 PO (18:52)
[2022-10-05] MEDS ORDERED: SERT-414 PO (18:52)
[2022-10-05] MEDS ORDERED: RISP3TAB62 PO (18:52)
[2022-10-05] MEDS ORDERED: DIVA500T15 PO ×2 (18:52)
[2022-10-05] MEDS ORDERED: OXYB5TAB13 PO (18:52)
[2022-10-05] MEDS ORDERED: TRAZ150T72 PO (18:52)
[2022-10-05 19:15] VITALS: BP 150/72
[2022-10-05] MEDS: risperiDONE 1 MG (RisperDAL) TAB PO SCH (20:46)
[2022-10-05] MEDS: OXYBUTYNIN (DITROPAN) 5 MG TAB PO SCH (20:46)
[2022-10-05] MEDS: DIVALPROEX EXT RELEASE 250 MG (DEPAKOTE ER) TAB PO SCH (20:46)
[2022-10-05] MEDS: carBAMazepine 200 MG (TEGretol) TAB PO SCH (20:47)
[2022-10-05] MEDS: traZODone 150 MG (DESYREL) TABLET PO SCH (20:47)
[2022-10-05] MEDS ORDERED: DIVALPROEX 250 MG DELAYED RELEASE (DEPAKOTE) TAB PO SCH ×2 (21:00)
[2022-10-05] MEDS ORDERED: NON-FORMULARY MEDICATION 1 EA EA (Risperidone 3 MG) PO SCH (21:00)
[2022-10-05] MEDS ORDERED: NON-FORMULARY MEDICATION 1 EA EA (Divalproex Sodium (Divalproex Sodium ER) 1,000 MG) PO SCH (21:00)
[2022-10-05 23:46] VITALS: BP 134/74
[2022-10-06] VITALS (7 sets, daily range): BP systolic 106–143; BP diastolic 60–89
[2022-10-06] MEDS: NS IV 1000 ML 1,000 ML IV SCH (02:25)
[2022-10-06 05:31] LABS: BASOPHILS % (AUTO) 0 % (0-10); MEAN CORPUSCULAR HGB CONC 31 g/dL (32-36)
[2022-10-06 05:33] LABS: EOSINOPHILS % (AUTO) 1 % (0-10); HEMATOCRIT 31 % (35-52); HEMOGLOBIN 9.8 g/dL (11.5-16.0); LYMPHOCYTES # (AUTO) 1.1 10^3/uL (1.0-4.0); LYMPHOCYTES % (AUTO) 53 % (12-44); MEAN CORPUSCULAR HEMOGLOBIN 29 pg (25-34); MEAN CORPUSCULAR VOLUME 92 fL (80-99); MEAN PLATELET VOLUME 12.3 fL (9.0-12.2); MONOCYTES # (AUTO) 0.2 10^3/uL (0.0-1.0); MONOCYTES % (AUTO) 11 % (0-12); NEUTROPHILS # (AUTO) 0.8 10^3/uL (1.8-7.8); NEUTROPHILS % (AUTO) 35 % (42-75); PLATELET COUNT 46 10^3/uL (130-400); WHITE BLOOD COUNT 2.2 10^3/uL (4.3-11.0)
[2022-10-06] MEDS: LEVOTHYROXINE 75 MCG (LEVOTHROID) TABLET PO SCH (05:37)
[2022-10-06 05:38] LABS: ALBUMIN 3.2 GM/DL (3.2-4.5); POTASSIUM 4.7 MMOL/L (3.6-5.0)
[2022-10-06 05:41] LABS: TOTAL PROTEIN 6.3 GM/DL (6.4-8.2)
[2022-10-06 05:43] LABS: BILIRUBIN,TOTAL 0.2 MG/DL (0.1-1.0)
[2022-10-06 05:44] LABS: CREATININE SERUM 0.92 MG/DL (0.60-1.30)
[2022-10-06] MEDS ORDERED: DEXTROSE 50% 50 ML (IMS) SYR ONE (06:11)
[2022-10-06] MEDS ORDERED: DEXTROSE 50% 50 ML (IMS) SYR IV ONE (06:15)
[2022-10-06] MEDS: risperiDONE 1 MG (RisperDAL) TAB PO SCH ×2 (08:49→19:47)
[2022-10-06] MEDS: DIVALPROEX EXT RELEASE 250 MG (DEPAKOTE ER) TAB PO SCH ×2 (08:49→19:48)
[2022-10-06] MEDS: OXYBUTYNIN (DITROPAN) 5 MG TAB PO SCH ×2 (08:49→19:47)
[2022-10-06] MEDS: carBAMazepine 200 MG (TEGretol) TAB PO SCH ×2 (08:49→19:47)
[2022-10-06] MEDS: SERTRALINE 100 MG (ZOLOFT) TAB PO SCH (08:50)
--- NOTE | 2022-10-06 08:50 | Progress Note - Hospitalist ---
Subjective HPI/CC On Admission Date Seen by Provider: Oct 06, 2022 Pt is a 57yoCF who resides at [place] who presented to the ER due to weakness. She was seen in the ER 2 days ago due to similar symptoms and was found to be pancytopenic. She was ambulatory though and discharged back to the home. She came into today because the weakness has worsened and she had a fall as well. Caregiver reports that she did not hit her head and it was witnessed. She hit her back only. Patient does complain of some mild back pain there. Her labs again reveal a pancytopenic picture but essentially stable from last visit. She was was unable to ambulate and is being admitted for further management. Caregive reports she has had very poor oral intake as well and those noticed some nasal discharge 2 days ago when she woke up but she hasn't noticed any other runny nose or respiratory symptoms. Subjective/Events-last exam Pt reports being nervous and wanting to go home. Still weak though. Discussed plan to see Heme/onc and work with PT. Reassured patient. Focused Exam Lactate Level 10/05/22 14:00: Lactic Acid Level 0.70 Objective Exam Vital Signs Vital Signs Date Time Temp Pulse Resp B/P (MAP) Pulse Ox O2 Delivery O2 Flow Rate FiO2 10/07/22 08:00 Room Air 10/07/22 07:35 36.2 65 20 136/83 (100) 98 Capillary Refill : Less Than 3 Seconds General Appearance: No Apparent Distress, Chronically ill, Thin Respiratory: Lungs Clear, No Respiratory Distress Cardiovascular: Regular Rate, Rhythm, No Murmur Neurologic/Psychiatric: Alert, Oriented x3 (to major details (name, place.)) Results/Procedures Lab Laboratory Tests 10/07/22 05:55 Patient resulted labs reviewed. Imaging: Reviewed Imaging Report Assessment/Plan Assessment and Plan Assess & Plan/Chief Complaint generalized weakness Panctyopenia Dehydration Failed outpatient management after ER visit 2 days ago negative for flu and covid Normal depakote and carbamazepine levels PT/OT IVF- change to D5 1/2NS due to hypoglycemia Heme/Onc consulted, appreciate recs DVT ppx: SCDs Diagnosis/Problems Diagnosis/Problems (1) General weakness Status: Acute (2) Leukopenia Status: Acute Qualifiers: Leukopenia type: neutropenia Neutropenia type: unspecified Qualified Codes: D70.9 - Neutropenia, unspecified (3) Thrombocytopenia Status: Acute YOJANA,TRUDY M MD Oct 06, 2022 08:50
[2022-10-06] MEDS ORDERED: NON-FORMULARY MEDICATION 1 EA EA (Divalproex Sodium (Divalproex Sodium ER) 500 MG) PO SCH (09:00)
[2022-10-06] MEDS ORDERED: OXYBUTYNIN (DITROPAN) 5 MG TAB PO SCH (09:00)
[2022-10-06] MEDS: D5 1/2 NS 1000 ML IV SOLUTION 1,000 ML IV SCH ×2 (09:06→19:47)
--- NOTE | 2022-10-06 10:56 | Occupational Therapy Eval ---
OT Evaluation-General/PLF Medical Diagnosis Admission Date Oct 05, 2022 at 15:19 Medical Diagnosis: Panctyopenia Onset Date: Oct 05, 2022 Therapy Diagnosis Therapy Diagnosis: Weakness, Decreased ADL skills Height/Weight Height (Feet): 5 Height (Inches): 1.00 Weight (Pounds): 168 Weight (Ounces): 6.0 Precautions Precautions/Isolations: Fall Prevention, Standard Precautions Weight Bear Status Weight Bearing Restriction: Weight Bearing/Tolerated Referral Physician: Dr. Swift Referral Reason: Activity Tolerance, Self Care, Evaluation/Treatment, Stre ngthening/ROM Medical History Current History Pt. is resident at [facility]. She was brought in a couple of days ago due to weakness. Sent home and came back for worsening weakness. Pt. had a fall at home with no fx/issues. Found to have dehydration/panctyopenia. Reviewed History: Yes Social History Home: [facility] with caregiving assist. Current Living Status: Entry Into Home: Level Entry ADL-Prior Level of Function SCALE: Activities may be completed with or without assistive devices. 1-Eibondnpaw-xyanpvs completes the activity by him/herself with no assistance from a helper. 5-Set-up or Clean-up Assistance-helper sets up or cleans up; patient completes activity. [place] assists only prior to or following the activity. 4-Supervision or Touching Assistance-helper provides verbal cues and/or touching/steadying and/or contact guard assistance as patient completes activity. Assistance may be provided throughout the activity or intermittently. 3-Partial/Moderate Assistance-helper does LESS THAN HALF the effort. [place] lifts, holds or supports trunk or limbs, but provides less than half the effort. 2-Substantial/Maximal Assistance-helper does MORE THAN HALF the effort. [place] lifts or holds trunk or limbs and provides more than half the effort. 9-Hkgawtcyo-fvazil does ALL the effort. Patient does none of the effort to complete the activity. Or, the assistance of 2 or more helpers is required for the patient to complete the activity. If activity was not attempted, code reason: 7-Patient Refused. 9-Not Applicable-not attempted and the patient did not perform the activity before the current illness, exacerbation or injury. 10-Not Attempted due to Environmental Limitations-(lack of equipment, weather restraints, etc.). 88-Not Attempted due to Medical Conditions or Safety Concerns. ADL PLOF Comments Pt. is able to state that someone assists her with bathing/dressing. She states that she does not use a walker for mobility. Self Care: Needed Some Help Functional Cognition: Needed Some Help Drive Self: No OT Current Status Subjective Pt. indicates that she is feeling better and does not indicate pain. However, does not like sitting EOB and declines further treatment. Mental Status/Objective Patient Orientation: Unable to Assess Attachments: IV Current Upper Extremity ROM Pt. is able to display approximately 100* bilateral shoulder AROM with poor posture EOB. ADL-Treatment Pt. is able to state that she required assistance at home with ADL skills. She lives in long term setting with caregiving assist. She does not use a walker or assistive device for ambulation. Pt. agrees to sit EOB and transfers quickly and easily. She declines attempting to doff/don slipper socks, stating "I can't." OT attempts to have pt. stand at bedside but she declines and immediately lays herself down. OT offers water, anything else. She shakes her head. Pt. with call light and tray. Bed alarm set. All needs met. Education OT Patient Education: Correct positioning, Progress toward Goal/Update tx plan, Purpose of tx/functional activities, Reviewed precautions, Rehab process, Transfer techniques Teaching Recipient: Patient Teaching Methods: Demonstration, Discussion Response to Teaching: Verbalize Understanding, Return Demonstration, Reinforcement Needed OT Senior Care Goals Certified Flight Instructor Goals Time Frame: Oct 20, 2022 Eating (QC): 5 Additional Goals: 3-ImproveStrength/Elsi 1=Demonstrate adherence to instructed precautions during ADL tasks. 2=Patient will verbalize/demonstrate understanding of assistive devices/modifications for ADL. 3=Patient will improve strength/tolerance for activity to enable patient to perform ADL's. Goals will be for pt. to return to prior functional status with improved overall strength. Pt. would benefit from exercises in the room for UE, as well as endurance training. Will provide AE as needed to assist in feeding self, if pt. was in fact fully independent with this prior. Caregiver not in room. OT Education/Plan Problem List/Assessment Assessment: Decreased Activ Tolerance, Decreased Safety Aware, Decreased UE Strength, Impaired I ADL's, Impaired Self-Care Skills Discharge Recommendations Plan/Recommendations: Continue POC Treatment Plan/Plan of Care Treatment,Training & Education: Yes Patient would benefit from OT for education, treatment and training to promote independence in ADL's, mobility, safety and/or upper extremity function for AD L's. Plan of Care: Functional Mobility, UE Funct Exercise/Act Treatment Duration: Oct 20, 2022 Frequency: 3 times per week (3-5x/week) Estimated Hrs Per Day: .25 hour per day Agreement: Yes Time Start Time: 10:28 Stop Time: 10:38 DATE: Oct 06, 2022 Total Time Billed (hr/min): 10 Billed Treatment Time 1, EDILMA ALCANTARA OT Oct 06, 2022 10:56
--- NOTE | 2022-10-06 11:26 | Physical Therapy Evaluation ---
PT Evaluation-General Medical Diagnosis Admission Date Oct 05, 2022 at 15:19 Medical Diagnosis: Panctyopenia Onset Date: Oct 05, 2022 Therapy Diagnosis Therapy Diagnosis: Gait deficit, strength deficit Height/Weight Height (Feet): 5 Height (Inches): 1.00 Weight (Pounds): 168 Weight (Ounces): 6.0 Precautions Precautions/Isolations: Fall Prevention, Standard Precautions Weight Bear Status Right Lower Extremity: Right Full Weight Bearing Left Lower Extremity: Left Full Weight Bearing Referral Physician: Dr. Swift Reason for Referral: Evaluation/Treatment Medical History Reviewed History: Yes Social History Home: [facility] with caregiving assist. Current Living Status: Entry Into Home: Level Entry Prior Prior Level of Function SCALE: Activities may be completed with or without assistive devices. 0-Ygjewxpyyh-zkvtnof completes the activity by him/herself with no assistance from a helper. 5-Set-up or Clean-up Assistance-helper sets up or cleans up; patient completes activity. [place] assists only prior to or following the activity. 4-Supervision or Touching Assistance-helper provides verbal cues and/or touching/steadying and/or contact guard assistance as patient completes activity. Assistance may be provided throughout the activity or intermittently. 3-Partial/Moderate Assistance-helper does LESS THAN HALF the effort. [place] lifts, holds or supports trunk or limbs, but provides less than half the effort. 2-Substantial/Maximal Assistance-helper does MORE THAN HALF the effort. [place] lifts or holds trunk or limbs and provides more than half the effort. 9-Koncsihxr-vgwtwr does ALL the effort. Patient does none of the effort to complete the activity. Or, the assistance of 2 or more helpers is required for the patient to complete the activity. If activity was not attempted, code reason: 7-Patient Refused. 9-Not Applicable-not attempted and the patient did not perform the activity before the current illness, exacerbation or injury. 10-Not Attempted due to Environmental Limitations-(lack of equipment, weather restraints, etc.). 88-Not Attempted due to Medical Conditions or Safety Concerns. Bed Mobility: 6 Transfers (B,C,W/C): 6 Gait: 6 Unsure specifically as to patients functional level or use of AD due to patients cognitive level. She answers some questions, however not always appropriately. PT Evaluation-Current Subjective Patient lying supine in bed upon PT arrival, agreeable to treatment. Nurse agreeable to treatment as well. Patient reports 0/10 pain currently. Objective Patient Orientation: Person ROM/Strength ROM Lower Extremities WFLs bilaterally all planes Strength Lower Extremities Patient unable to follow commands to perform MMT, however demonstrates 3/5 or better for all LE motions. Sensory Vision: Functional Hearing: Functional Transfers Roll Left to Right (QC): 3 Sit to Lying (QC): 3 Lying to Sitting/Side of Bed(Q: 3 Sit to Stand (QC): 3 Chair/Wil-wq-Inzvt Xfer(QC): 3 Gait Does the Patient Walk?: Yes Mode of Locomotion: Walk Anticipated Mode of Locomotion: Walk Walk 10 feet (QC): 2 Distance: 16 feet Gait Assistive Device: FWW Balance Sitting Static: Fair Sitting Dynamic: Fair Standing Static: Poor Standing Dynamic: Poor Assessment/Needs Patient is able to follow commands, but needs some repeating. Patient is able to respond to questions, however most answers are not appropriate to situation. Patient performs all observed bed mobility and transfers with min/mod A. Patient ambulates 16 feet with FWW, with max A in room. Patient repeatedly lets the FWW get too far in front of her, tends to not observe obstacles and her knees frequently buckle. Patient in bed post treatment with all needs met, nurse notified, call light in hand and bed alarm activated. Rehab Potential: Fair PT Short Term Goals Short Term Goals Time Frame: Oct 13, 2022 Roll Left & Right: 4 Sit to lyin Lying to sitting on side of be: 4 Sit to stand: 4 Chair/fml-ty-jnzar transfer: 4 Toilet transfer: 4 Walk 10 feet: 3 Walk 50 feet with two turns: 3 Walk 150 feet: 3 PT Communications Coordinator Goals Communications Coordinator Goals PT [facility] Goals Time Frame: Nov 03, 2022 Roll Left & Right (QC): 6 Sit to Lying (QC): 6 Lying-Sitting on Side/Bed(QC): 6 Sit to Stand (QC): 6 Chair/Ugu-ns-Dgrhq Xfer(QC): 6 Toilet Transfer (QC): 5 Does the Patient Walk: Yes Walk 10 feet (QC): 5 Walk 50ft with 2 Turns (QC): 5 Walk 150 ft (QC): 4 PT Plan Problem List Problem List: Activity Tolerance, Functional Strength, Safety, Balance, Gait, Bed Mobility, ROM Treatment/Plan Treatment Plan: Continue Plan of Care Treatment Plan: Bed Mobility, Education, Functional Activity Elsi, Functional Strength, Group Therapy, Gait, Safety, Therapeutic Exercise, Transfers Treatment Duration: Nov 03, 2022 Frequency: 6 times per week Estimated Hrs Per Day: .25 hour per day Patient and/or Family Agrees t: Yes Safety Risks/Education Patient Education: Gait Training, Transfer Techniques Teaching Recipient: Patient Teaching Methods: Demonstration, Discussion Response to Teaching: Reinforcement Needed Time Time In: 1016 Time Out: 1030 DATE: Oct 06, 2022 Total Billed Treatment Time: 14 Total Billed Treatment Visit, DIAN Lemos PT Oct 06, 2022 11:26
--- NOTE | 2022-10-06 11:52 | Oncology Consultation ---
Visit Information Visit Information Date of Admission Oct 05, 2022 at 15:19 Attending Physician Raoul Barber MD Admitting Physician Admitting Physician: Elida Swift MD Attending Physician: Elida Swift MD Chief Complaint General weakness, pancytopenia Interval History Pt is a 57 year old female with mental issues and I am not able to get any history from her today. Admitted from ER yesterday for general weakness and pancytopenia. I am called to evaluate the pancytopenia. No fever. No bleeding. No sign of infection so far. I do not have any old record of her blood counts. I called 2 numbers listed in her chart, one number no longer in service, the other no answer and voice box is full and I can not leave message. I consulted the patient on: 10/06/22 11:46 Time Seen by Provider: 11:51 Review of Systems Constitutional: see HPI Health Status Allergies Coded Allergies: Penicillins (Verified Allergy, Unknown, 12/20/15) diphenhydramine HCl (Verified Allergy, Unknown, 12/20/15) Uncoded Allergies: chlorine (Allergy, Unknown, 12/20/15) Home Medications Carbamazepine (Tegretol) 200 Mg Tablet, 1 TAB PO BID, (Reported) Divalproex Sodium (Divalproex Sodium ER) 500 Mg Tab.er.24h, 500 MG PO DAILY, (Reported) Divalproex Sodium (Divalproex Sodium ER) 500 Mg Tab.er.24h, 1,000 MG PO HS, (Reported) Levothyroxine Sodium (Levothyroxine Sodium) 75 Mcg Tablet, 75 MCG PO DAILY, (Reported) Oxybutynin Chloride (Oxybutynin Chloride) 5 Mg Tablet, 5 MG PO BID for 3 Days, #6 Ref 0 Prescribed by: Eusebio Le on 10/03/22 1727 Oxybutynin Chloride (Oxybutynin Chloride) 5 Mg Tablet, 5 MG PO DAILY, (Reported) Risperidone (Risperidone) 3 Mg Tablet, 3 MG PO BID, (Reported) Sertraline HCl (Sertraline HCl) 100 Mg Tablet, 100 MG PO DAILY, (Reported) Trazodone HCl (Trazodone HCl) 150 Mg Tablet, 150 MG PO HS, (Reported) ECZ-Eaftqn-Pjgurr Hx Patient Social History Marrital Status: single Employed/Student: unemployed Alcohol Use?: No Have you traveled recently?: No Immunizations Up To Date Date of Pneumonia Vaccine: Apr 09, 2008 Date of Influenza Vaccine: Jun 09, 2011 Physical Exam Vital Signs Vital Signs - First Documented 10/05/22 10/05/22 13:45 16:44 Temp 33.6 Pulse 85 Resp 18 B/P (MAP) 131/79 (96) Pulse Ox 97 O2 Delivery Room Air Capillary Refill : Less Than 3 Seconds Height, Weight, BMI Height: 5'1.00" Weight: 168lbs. 6.0oz. [id number]; 10.18 BMI Method:Stated General Appearance: No Apparent Distress, Other (mental retarted, no able to engage any meaningful conversation. ) HEENT: PERRL/EOMI Neck: Non Tender, Supple Respiratory: No Accessory Muscle Use, No Respiratory Distress Gastrointestinal: Non Tender, Soft Extremity: Non Tender, No Calf Tenderness, No Pedal Edema Neurologic/Psychiatric: Other (awake, no pain) Data Review Labs Laboratory Tests 10/05/22 14:00 10/05/22 17:16 10/06/22 05:17 Laboratory Tests 10/05/22 14:00: White Blood Count 2.3L, Red Blood Count 3.75L, Hemoglobin 11.0L, Red Cell Distribution Width 16.9H, Platelet Count 50L, Mean Platelet Volume 12.5H, Neutrophils # (Auto) 1.2L, Lymphocytes # (Auto) 0.9L, Percent Immature Platelet Fraction 11.0H, Activated Partial Thromboplast Time 40H, Potassium Level 5.4H, Chloride Level 110H, Blood Urea Nitrogen 33H, Aspartate Amino Transf (AST/SGOT) 61H, Alanine Aminotransferase (ALT/SGPT) 68H 10/05/22 14:06: Urine Specific [place] 1.025H, Urine Ketones 1+H, Urine Mucus SMALLH 10/05/22 15:45: 10/05/22 17:16: White Blood Count 2.5L, Red Blood Count 3.45L, Hemoglobin 10.1L, Red Cell Distribution Width 16.3H, Platelet Count 45L, Neutrophils # (Auto) 1.2L, Percent Immature Platelet Fraction 11.3H, Hematocrit 32L 10/06/22 05:17: White Blood Count 2.2L, Red Blood Count 3.41L, Hemoglobin 9.8L, Hematocrit 31L, Mean Corpuscular Hemoglobin Concent 31L, Red Cell Distribution Width 16.4H, Platelet Count 46L, Mean Platelet Volume 12.3H, Neutrophils (%) (Auto) 35L, Lymphocytes (%) (Auto) 53H, Neutrophils # (Auto) 0.8L, Percent Immature Platelet Fraction 12.7H, Sodium Level 146H, Chloride Level 112H, Blood Urea Nitrogen 28H, Glucose Level 47*L, Aspartate Amino Transf (AST/SGOT) 52H, Alanine Aminotransferase (ALT/SGPT) 61H, Total Protein 6.3L 10/06/22 06:39: Glucometer 182H 10/06/22 09:00: Glucometer 67L 10/06/22 10:09: Impression & Plan Impression & Plan IMP: 1. Pancytopenia 2. General weakness 3. Mental retardation Rec: 1. Pt needs to have bone marrow exam. We need to figure out who will be the person to sign her consent for the procedure. 2. Transfuse only if Hb <7, Plt <10 or major active bleeding. 3. I will f/u with you Saturday Thank you for the consultation. SHARMIN LOW MD Oct 06, 2022 11:51
[2022-10-06] MEDS: cefTRIAXone 1 GM PRE-MIX 50 ML IV SCH (17:12)
[2022-10-06] MEDS: traZODone 150 MG (DESYREL) TABLET PO SCH (19:47)
[2022-10-06] MEDS: MELATONIN 3 MG TABLET PO PRN (19:47)
[2022-10-07 03:15] VITALS: BP 127/83
[2022-10-07] MEDS: LEVOTHYROXINE 75 MCG (LEVOTHROID) TABLET PO SCH (04:57)
[2022-10-07 06:09] LABS: BASOPHILS % (AUTO) 0 % (0-10); EOSINOPHILS % (AUTO) 1 % (0-10); HEMATOCRIT 30 % (35-52); HEMOGLOBIN 9.5 g/dL (11.5-16.0); LYMPHOCYTES # (AUTO) 1.4 10^3/uL (1.0-4.0); LYMPHOCYTES % (AUTO) 56 % (12-44); MEAN CORPUSCULAR HEMOGLOBIN 29 pg (25-34); MEAN CORPUSCULAR HGB CONC 32 g/dL (32-36); MEAN CORPUSCULAR VOLUME 91 fL (80-99); MEAN PLATELET VOLUME 12.2 fL (9.0-12.2); MONOCYTES # (AUTO) 0.3 10^3/uL (0.0-1.0); MONOCYTES % (AUTO) 13 % (0-12); NEUTROPHILS # (AUTO) 0.7 10^3/uL (1.8-7.8); NEUTROPHILS % (AUTO) 30 % (42-75); PLATELET COUNT 41 10^3/uL (130-400); WHITE BLOOD COUNT 2.5 10^3/uL (4.3-11.0)
[2022-10-07 06:26] LABS: POTASSIUM 4.3 MMOL/L (3.6-5.0)
[2022-10-07 06:28] LABS: TOTAL PROTEIN 6.1 GM/DL (6.4-8.2)
[2022-10-07 06:30] LABS: BILIRUBIN,TOTAL 0.1 MG/DL (0.1-1.0)
[2022-10-07 06:32] LABS: CREATININE SERUM 0.98 MG/DL (0.60-1.30)
[2022-10-07] MEDS: D5 1/2 NS 1000 ML IV SOLUTION 1,000 ML IV SCH ×2 (06:53→17:03)
[2022-10-07 07:35] VITALS: BP 136/83
[2022-10-07] MEDS: DIVALPROEX EXT RELEASE 250 MG (DEPAKOTE ER) TAB PO SCH ×2 (08:10→20:13)
[2022-10-07] MEDS: OXYBUTYNIN (DITROPAN) 5 MG TAB PO SCH ×2 (08:10→20:13)
[2022-10-07] MEDS: SERTRALINE 100 MG (ZOLOFT) TAB PO SCH (08:10)
[2022-10-07] MEDS: carBAMazepine 200 MG (TEGretol) TAB PO SCH ×2 (08:11→20:14)
[2022-10-07] MEDS: risperiDONE 1 MG (RisperDAL) TAB PO SCH ×2 (08:11→20:14)
--- NOTE | 2022-10-07 10:44 | Progress Note - Hospitalist ---
Subjective HPI/CC On Admission Date Seen by Provider: Oct 07, 2022 Pt is a 57yoCF who resides at [facility] who presented to the ER due to weakness. She was seen in the ER 2 days ago due to similar symptoms and was found to be pancytopenic. She was ambulatory though and discharged back to the home. She came into today because the weakness has worsened and she had a fall as well. Caregiver reports that she did not hit her head and it was witnessed. She hit her back only. Patient does complain of some mild back pain there. Her labs again reveal a pancytopenic picture but essentially stable from last visit. She was was unable to ambulate and is being admitted for further management. Caregive reports she has had very poor oral intake as well and those noticed some nasal discharge 2 days ago when she woke up but she hasn't noticed any other runny nose or respiratory symptoms. Subjective/Events-last exam Pt reports doing ok. Discussed the recommendations with pt about bone marrow biopsy and need to stay in hospital. No caregivers or guardians available to obtain consent. Focused Exam Lactate Level 10/05/22 14:00: Lactic Acid Level 0.70 Objective Exam Vital Signs Vital Signs Date Time Temp Pulse Resp B/P (MAP) Pulse Ox O2 Delivery O2 Flow Rate FiO2 10/07/22 08:00 Room Air 10/07/22 07:35 36.2 65 20 136/83 (100) 98 Capillary Refill : Less Than 3 Seconds General Appearance: No Apparent Distress, Chronically ill Respiratory: Lungs Clear, No Respiratory Distress Cardiovascular: Regular Rate, Rhythm Gastrointestinal: Normal Bowel Sounds, Soft Neurologic/Psychiatric: Alert Results/Procedures Lab Laboratory Tests 10/07/22 05:55 Patient resulted labs reviewed. Imaging: Reviewed Imaging Report Assessment/Plan Assessment and Plan Assess & Plan/Chief Complaint generalized weakness Panctyopenia Dehydration negative for flu and covid Normal depakote and carbamazepine levels PT/OT- walked 16 feet yesterday ContinueD5 1/2NS due to hypoglycemia, oral intake improving Heme/Onc consulted, appreciate recs Per their note they attempted to reach guardian to discuss bone marrow biopsy DVT ppx: SCDs Diagnosis/Problems Diagnosis/Problems (1) General weakness Status: Acute (2) Leukopenia Status: Acute Qualifiers: Leukopenia type: neutropenia Neutropenia type: unspecified Qualified Codes: D70.9 - Neutropenia, unspecified (3) Thrombocytopenia Status: Acute YOJANA,TRUDY M MD Oct 07, 2022 10:43
[2022-10-07 11:34] VITALS: BP 119/78
[2022-10-07 16:05] VITALS: BP 153/94
[2022-10-07] MEDS: cefTRIAXone 1 GM PRE-MIX 50 ML IV SCH (17:03)
[2022-10-07 19:52] VITALS: BP 149/88
[2022-10-07] MEDS: MELATONIN 3 MG TABLET PO PRN (20:13)
[2022-10-07] MEDS: traZODone 150 MG (DESYREL) TABLET PO SCH (20:13)
[2022-10-07] MEDS ORDERED: HALOPERIDOL 5 MG/ML (HALDOL) VIAL ONE (21:57)
[2022-10-07] MEDS ORDERED: HALOPERIDOL 5 MG/ML (HALDOL) VIAL IM PRN (22:00)
[2022-10-07 23:31] VITALS: BP 168/74
[2022-10-08] VITALS (9 sets, daily range): BP systolic 120–173; BP diastolic 68–95
[2022-10-08] MEDS: D5 1/2 NS 1000 ML IV SOLUTION 1,000 ML IV SCH ×2 (05:52→11:02)
[2022-10-08] MEDS: LEVOTHYROXINE 75 MCG (LEVOTHROID) TABLET PO SCH (05:53)
[2022-10-08 05:54] LABS: NEUTROPHILS # (AUTO) 1.4 10^3/uL (1.8-7.8)
[2022-10-08 05:56] LABS: BASOPHILS % (AUTO) 0 % (0-10); EOSINOPHILS % (AUTO) 1 % (0-10); HEMATOCRIT 28 % (35-52); HEMOGLOBIN 8.8 g/dL (11.5-16.0); LYMPHOCYTES # (AUTO) 1.3 10^3/uL (1.0-4.0); LYMPHOCYTES % (AUTO) 42 % (12-44); MEAN CORPUSCULAR HEMOGLOBIN 29 pg (25-34); MEAN CORPUSCULAR HGB CONC 32 g/dL (32-36); MEAN CORPUSCULAR VOLUME 91 fL (80-99); MEAN PLATELET VOLUME 12.1 fL (9.0-12.2); MONOCYTES # (AUTO) 0.3 10^3/uL (0.0-1.0); MONOCYTES % (AUTO) 10 % (0-12); NEUTROPHILS % (AUTO) 46 % (42-75); WHITE BLOOD COUNT 3.1 10^3/uL (4.3-11.0)
[2022-10-08 05:57] LABS: PLATELET COUNT 37 10^3/uL (130-400)
[2022-10-08 06:08] LABS: POTASSIUM 4.3 MMOL/L (3.6-5.0)
[2022-10-08 06:09] LABS: CALCIUM 8.8 MG/DL (8.5-10.1)
[2022-10-08 06:10] LABS: TOTAL PROTEIN 6.1 GM/DL (6.4-8.2)
[2022-10-08 06:12] LABS: BILIRUBIN,TOTAL 0.1 MG/DL (0.1-1.0)
[2022-10-08 06:14] LABS: CREATININE SERUM 0.83 MG/DL (0.60-1.30)
[2022-10-08] MEDS ORDERED: LORazepam 0.5 MG (ATIVAN) TABLET PO PRN (06:30)
[2022-10-08 08:08] LABS: INR 0.9 (0.8-1.4); PROTHROMBIN TIME PATIENT 12.9 SEC (12.2-14.7)
[2022-10-08 08:23] LABS: BASOPHILS % (AUTO) 0 % (0-10); EOSINOPHILS % (AUTO) 1 % (0-10); HEMATOCRIT 28 % (35-52); HEMOGLOBIN 8.8 g/dL (11.5-16.0); LYMPHOCYTES # (AUTO) 1.3 10^3/uL (1.0-4.0); LYMPHOCYTES % (AUTO) 42 % (12-44); MEAN CORPUSCULAR HEMOGLOBIN 29 pg (25-34); MEAN CORPUSCULAR HGB CONC 32 g/dL (32-36); MEAN CORPUSCULAR VOLUME 91 fL (80-99); MEAN PLATELET VOLUME 12.1 fL (9.0-12.2); MONOCYTES # (AUTO) 0.3 10^3/uL (0.0-1.0); MONOCYTES % (AUTO) 10 % (0-12); NEUTROPHILS # (AUTO) 1.4 10^3/uL (1.8-7.8); NEUTROPHILS % (AUTO) 46 % (42-75); WHITE BLOOD COUNT 3.1 10^3/uL (4.3-11.0)
[2022-10-08 08:24] LABS: PLATELET COUNT 37 10^3/uL (130-400)
[2022-10-08 08:25] LABS: ABSOLUTE RETIC # 37 10e9/uL (24-90); RETICULOCYTE % 1.21 % (0.50-2.40)
[2022-10-08] MEDS ORDERED: CARB200T6 PO (08:28)
[2022-10-08] MEDS: carBAMazepine 200 MG (TEGretol) TAB PO SCH (08:33)
[2022-10-08] MEDS: risperiDONE 1 MG (RisperDAL) TAB PO SCH (08:33)
[2022-10-08] MEDS: SERTRALINE 100 MG (ZOLOFT) TAB PO SCH (08:33)
[2022-10-08] MEDS: DIVALPROEX EXT RELEASE 250 MG (DEPAKOTE ER) TAB PO SCH (08:33)
[2022-10-08] MEDS: OXYBUTYNIN (DITROPAN) 5 MG TAB PO SCH (08:33)
[2022-10-08 09:00] LABS: BAND NEUTROPHILS 3 %; BASOPHILS % (MANUAL) 1 %; EOSINOPHILS % (MANUAL) 2 %; LYMPHOCYTES % (MANUAL) 32 %; MONOCYTES % (MANUAL) 13 %; NEUTROPHILS % (MANUAL) 49 %; NUCLEATED RED BLOOD CELLS 1; PLATELET CLUMPS NONE SEEN
[2022-10-08 09:01] LABS: ANISOCYTOSIS SLIGHT; HYPOCHROMASIA SLIGHT
--- NOTE | 2022-10-08 09:34 | Physical Therapy Daily Note ---
PT Daily Note-Current Subjective Per RN, patient has been ambulating in hallway with nursing staff. Pain Section J - Health Conditions 1. Rarely or not at all 2. Occasionally 3. Frequently 4. Almost constantly 8. Unable to answer Pain Effect on Sleep: 8 Pain Interference with Therapy: 8 Pain Interference w/Day-to-Day: 8 Mental Status Patient Orientation: MR Transfers SCALE: Activities may be completed with or without assistive devices. 2-Mlishoqdah-yvvotxv completes the activity by him/herself with no assistance from a helper. 5-Set-up or Clean-up Assistance-helper sets up or cleans up; patient completes activity. [place] assists only prior to or following the activity. 4-Supervision or Touching Assistance-helper provides verbal cues and/or touching/steadying and/or contact guard assistance as patient completes activit y. Assistance may be provided throughout the activity or intermittently. 3-Partial/Moderate Assistance-helper does LESS THAN HALF the effort. [place] lifts, holds or supports trunk or limbs, but provides less than half the effort. 2-Substantial/Maximal Assistance-helper does MORE THAN HALF the effort. [place] lifts or holds trunk or limbs and provides more than half the effort. 8-Isdmusgyt-yhxsgf does ALL the effort. Patient does none of the effort to complete the activity. Or, the assistance of 2 or more helpers is required for the patient to complete the activity. If activity was not attempted, code reason: 7-Patient Refused. 9-Not Applicable-not attempted and the patient did not perform the activity before the current illness, exacerbation or injury. 10-Not Attempted due to Environmental Limitations-(lack of equipment, weather restraints, etc.). 88-Not Attempted due to Medical Conditions or Safety Concerns. Sit to Stand (QC): 4 Weight Bearing Right Lower Extremity: Right Full Weight Bearing Left Lower Extremity: Left Full Weight Bearing Gait Training Distance: 400' Walk 10 feet (QC): 4 Walk 50 ft with 2 Turns(QC): 4 Walk 150 ft (QC): 4 Gait Assistive Device: None CGA for safety Assessment Patient to ambulate with nursing PRN in hallway. PT to dismiss patient from services at this time. PT Short Term Goals Short Term Goals Time Frame: Oct 13, 2022 Roll Left & Right: 4 Sit to lyin Lying to sitting on side of be: 4 Sit to stand: 4 Chair/qcw-ot-tsewz transfer: 4 Toilet transfer: 4 Walk 10 feet: 3 Walk 50 feet with two turns: 3 Walk 150 feet: 3 PT Senior Care Goals Senior Care Goals PT Senior Care Goals Time Frame: Nov 03, 2022 Roll Left & Right (QC): 6 Sit to Lying (QC): 6 Lying-Sitting on Side/Bed(QC): 6 Sit to Stand (QC): 6 Chair/Nur-dn-Wopxn Xfer(QC): 6 Toilet Transfer (QC): 5 Does the Patient Walk: Yes Walk 10 feet (QC): 5 Walk 50ft with 2 Turns (QC): 5 Walk 150 ft (QC): 4 PT Plan Treatment/Plan Treatment Plan: Discontinue PT Treatment Plan: Bed Mobility, Education, Functional Activity Elsi, Functional Strength, Group Therapy, Gait, Safety, Therapeutic Exercise, Transfers Treatment Duration: Nov 03, 2022 Frequency: 6 times per week Estimated Hrs Per Day: .25 hour per day Patient and/or Family Agrees t: Yes Time Time In: 825 Time Out: 835 DATE: Oct 08, 2022 Total Billed Treatment Time: 10 Total Billed Treatment 1 visit FA 10 min SHWETA NICKERSON PT Oct 08, 2022 09:34
--- NOTE | 2022-10-08 09:51 | Occupational Ther Daily Note ---
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 3-Maxtkrwdqj-mjmfmey completes the activity by him/herself with no assistance from a helper. 5-Set-up or Clean-up Assistance-helper sets up or cleans up; patient completes activity. [place] assists only prior to or following the activity. 4-Supervision or Touching Assistance-helper provides verbal cues and/or touching/steadying and/or contact guard assistance as patient completes activity. Assistance may be provided throughout the activity or intermittently. 3-Partial/Moderate Assistance-helper does LESS THAN HALF the effort. [place] lifts, holds or supports trunk or limbs, but provides less than half the effort. 2-Substantial/Maximal Assistance-helper does MORE THAN HALF the effort. [place] lifts or holds trunk or limbs and provides more than half the effort. 4-Upktjqgpp-trylnc does ALL the effort. Patient does none of the effort to complete the activity. Or, the assistance of 2 or more helpers is required for the patient to complete the activity. If activity was not attempted, code reason: 7-Patient Refused. 9-Not Applicable-not attempted and the patient did not perform the activity before the current illness, exacerbation or injury. 10-Not Attempted due to Environmental Limitations-(lack of equipment, weather restraints, etc.). 88-Not Attempted due to Medical Conditions or Safety Concerns. Eating (QC): 5 (chocolate ice cream) Oral Hygiene (QC): 7 (refused oral care) Shower/Bathe Self (QC): 7 (refused shower) Upper Body Dressing (QC): 7 (refused changing clothes) Lower Body Dressing (QC): 7 (refused changing clothes) On/Off Footwear: 4 (OT assit with alignment of shoe tongue and unfolding heel f lap, shoes are loosely tied and slip on) Toileting Hygiene (QC): 7 (refused toileting) Toilet Transfer (QC): 7 (refused toileting, however transfer form recliner min Assist. Patient is impulsive to stand and sit, misuseo f FWW) Other Treatment Functional activity w/ babydoll and walk on floor, LOB x4 with gait belt and FWW. min Assistance to regain. Impulsive and unsafe with FWW, requires navigation assistance Moderately in halls and placement during transfers Education OT Patient Education: Correct positioning, Progress toward Goal/Update tx plan, Purpose of tx/functional activities, Reviewed precautions, Rehab process, Use of adapted equipment Teaching Recipient: Patient Teaching Methods: Demonstration, Discussion Response to Teaching: Verbalize Understanding, Return Demonstration, Reinforcement Needed OT Half-Way Goals [employer] Pilot Goals Time Frame: Oct 20, 2022 Eating (QC): 5 Additional Goals: 3-ImproveStrength/[place] 1=Demonstrate adherence to instructed precautions during ADL tasks. 2=Patient will verbalize/demonstrate understanding of assistive devices/modifications for ADL. 3=Patient will improve strength/tolerance for activity to enable patient to perform ADL's. OT Education/Plan Problem List/Assessment Assessment: Decreased Activ Tolerance, Decreased Safety Aware, Impaired Cognition, Impaired Coordination, Impaired Funct Balance, Impaired Self-Care Skills Discharge Recommendations Plan/Recommendations: Continue POC Therapy Discharge Recommendati: 24 Hour Supervision, Post Acute OT (it is unknown if patient receives OT services at home) Treatment Plan/Plan of Care Patient would benefit from OT for education, treatment and training to promote independence in ADL's, mobility, safety and/or upper extremity function for ADL's. Plan of Care: ADL Retraining, Functional Mobility, UE Funct Exercise/Act Treatment Duration: Oct 20, 2022 Frequency: 3 times per week (3-5x/week) Estimated Hrs Per Day: .25 hour per day Agreement: Yes Rehab Potential: Fair Time Start Time: 09:31 Stop Time: 09:57 DATE: Oct 08, 2022 Total Time Billed (hr/min): 26 Billed Treatment Time 1 visit ADL 1, FA 1 26min FAYE DUONG OT Oct 08, 2022 09:51
[2022-10-08] MEDS ORDERED: LIDOCAINE 1% INJ 30 ML (XYLOCAINE) VIAL INJ ONE (11:00)
[2022-10-08] MEDS ORDERED: LIDOCAINE 1% INJ 20 ML VIAL INJ ONE (11:15)
--- NOTE | 2022-10-08 11:52 | Diagnostic Imaging Report ---
INDICATION: Low white blood cell count. Patient presents for CT-guided bone marrow aspiration and biopsy. Patient brought to the CT suite placed on table in the prone position. Axial imaging through the pelvis was performed to evaluate appropriate entry site. A low back was prepped and draped in usual sterile fashion. Small amount of 1% lidocaine was utilized for local anesthesia. Bone marrow needle was advanced and placed with its tip along the posterior cortex of the right iliac bone. Bone marrow drill was utilized to advance the needle beyond the cortex into the marrow. Attempts were made to aspirate the bone marrow however were unsuccessful. Therefore, core biopsy was obtained. Next, the needle was repositioned along the posterior cortex and advanced into the marrow utilizing bone marrow drill. A 2nd core biopsy was obtained. Needle was withdrawn and hemostasis was obtained. Patient tolerated the procedure well and left the department in stable condition. Total procedure time is approximately 10 minutes. IMPRESSION: Successful CT-guided bone marrow core biopsy x2. Pathology results are currently pending. Dictated by: Dictated on workstation # [id number]
--- NOTE | 2022-10-08 13:22 | Pre-Procedure Progress Note ---
Pre-Procedure Progress Note Date of Available H&P: Oct 08, 2022 Date H&P Reviewed: Oct 08, 2022 Time H&P Reviewed: 10:00 Pre-Procedure Diagnosis: elevated wbc JUAN CARLOS KNIGHT MD Oct 08, 2022 13:22
--- NOTE | 2022-10-08 20:28 | Discharge Summary ---
Discharge Summary Hospital Course Problems/Dx: (1) Pancytopenia Status: Acute (2) General weakness Status: Acute (3) Leukopenia Status: Acute Qualifiers: Qualified Codes: D70.9 - Neutropenia, unspecified (4) Thrombocytopenia Status: Acute Hospital Course Date of Admission: Oct 05, 2022 at 15:19 Admission Diagnosis : Pancytopenia Family Physician/Provider: Kiran Barber MD Date of Discharge: 10/08/22 Discharge Diagnosis: Pancytopenia Hospital Course: Samaria Durham is a 57 year old female who presented with weakness and was admitted with pancytopenia. Hematology was consulted. Radiology performed a bone marrow biopsy. Her course was complicated by dehydration which improved with IV fluids. She worked with PT and her weakness improved. She was discharged home in stable condition. She should follow up with Dr. Low in about a week. Her bone marrow biopsy results were pending at the time of discharge. Labs and Pending Lab Test: Laboratory Tests 10/08/22 05:39: Glucometer 92 10/08/22 05:40: White Blood Count 3.1L, Red Blood Count 3.06L, Hemoglobin 8.8L, Hematocrit 28L, Mean Corpuscular Volume 91, Mean Corpuscular Hemoglobin 29, Mean Corpuscular Hemoglobin Concent 32, Red Cell Distribution Width 16.3H, Platelet Count 37*L, Mean Platelet Volume 12.1, Immature Granulocyte % (Auto) 1, Neutrophils (%) (Auto) 46, Lymphocytes (%) (Auto) 42, Monocytes (%) (Auto) 10, Eosinophils (%) (Auto) 1, Basophils (%) (Auto) 0, Neutrophils # (Auto) 1.4L, Lymphocytes # (Auto) 1.3, Monocytes # (Auto) 0.3, Eosinophils # (Auto) 0.0, Basophils # (Auto) 0.0, Immature Granulocyte # (Auto) 0.0, Neutrophils % (Manual) 49, Lymphocytes % (Manual) 32, Monocytes % (Manual) 13, Eosinophils % (Manual) 2, Basophils % (Manual) 1, Band Neutrophils 3, Nucleated Red Blood Cells 1, Clumped Platelets NONE SEEN, Percent Immature Platelet Fraction 13.2H, Hypochromasia SLIGHT, Anisocytosis SLIGHT, Absolute Reticulocyte Count 37, Percent Reticulocyte Count 1.21, Prothrombin Time 12.9, INR Comment 0.9, Sodium Level 144, Potassium Level 4.3, Chloride Level 111H, Carbon Dioxide Level 25, Anion Gap 8, Blood Urea Nitrogen 17, Creatinine 0.83, Estimat Glomerular Filtration Rate 83, BUN/Creat inine Ratio 20, Glucose Level 95, Calcium Level 8.8, Corrected Calcium 9.6, Total Bilirubin 0.1, Aspartate Amino Transf (AST/SGOT) 43H, Alanine Aminotransferase (ALT/SGPT) 50, Alkaline Phosphatase 125, Total Protein 6.1L, Albumin 3.0L 10/08/22 11:03: Glucometer 125H Microbiology 10/05/22 Blood Culture - Preliminary, Resulted No growth 10/05/22 Urine Culture - Final, Complete Mixed Bacterial Salima See Comments No Further Testing Home Meds Active Reported Carbamazepine 200 Mg Tablet 200 Mg PO BID Trazodone HCl 150 Mg Tablet 150 Mg PO HS Divalproex Sodium ER (Divalproex Sodium) 500 Mg Tab.er.24h 1,000 Mg PO HS TAKES 2 (500MG) TABS Divalproex Sodium ER (Divalproex Sodium) 500 Mg Tab.er.24h 500 Mg PO DAILY Risperidone 3 Mg Tablet 3 Mg PO BID Sertraline HCl 100 Mg Tablet 100 Mg PO DAILY Levothyroxine Sodium 75 Mcg Tablet 75 Mcg PO DAILY Oxybutynin Chloride 5 Mg Tablet 5 Mg PO DAILY Assessment/Pt Instructions Take medications as prescribed. Follow up with Dr. Low in about a week. Return with worsening weakness, pain, or if you feel like you are getting worse. Discharge Planning: >30 minutes discharge planning Discharge Instructions Discharge Diet: No Restrictions Activity as Tolerated: Yes Consultations Hematology Discharge Physical Examination Vital Signs Vital Signs Date Time Temp Pulse Resp B/P (MAP) Pulse Ox O2 Delivery O2 Flow Rate FiO2 10/08/22 14:15 10/08/22 13:00 36.0 82 16 94 Room Air General Appearance: No Apparent Distress Respiratory: Lungs Clear, No Respiratory Distress Cardiovascular: Regular Rate, Rhythm, No Murmur Gastrointestinal: Normal Bowel Sounds, Soft Extremity: Normal Inspection, No Pedal Edema Skin: Normal Color, Warm/Dry Neurologic/Psychiatric: Alert, No Motor/Sensory Deficits Allergies: Coded Allergies: Penicillins (Verified Allergy, Unknown, 12/20/15) diphenhydramine HCl (Verified Allergy, Unknown, 12/20/15) Uncoded Allergies: chlorine (Allergy, Unknown, 12/20/15) Copy Copies To 1: SHARMIN LOW MD Copies To 2: KIRAN BARBER MD Discharge Summary Date of Admission Oct 05, 2022 at 15:19 Date of Discharge Oct 08, 2022 at 14:15 Discharge Date: Oct 08, 2022 Discharge Time: 14:15 Admission Diagnosis generalized weakness Consults/Procedures Consulations Hematology, Radiology Procedures Bone marrow biopsy Discharge Diagnosis (1) Pancytopenia Status: Acute (2) General weakness Status: Acute (3) Leukopenia Status: Acute Qualifiers: Qualified Codes: D70.9 - Neutropenia, unspecified (4) Thrombocytopenia Status: Acute UMAIR ENCINAS MD Oct 08, 2022 20:28
== END 2022-10-08 14:15 | disposition home or self-care (01) | DRG 810 ==
LOC: EDUNIT# 13:39 → ER 13:41 → 4TH 15:19
PROVIDERS: ADMIT Family Medicine; ATTEND Internal Medicine
DX: D61.818 Other pancytopenia (principal); E86.0 Dehydration; R53.1 Weakness; G40.909 Epilepsy, unspecified, not intractable, without status epilepticus; F79 Unspecified intellectual disabilities; F20.9 Schizophrenia, unspecified; Z20.822 Contact with and (suspected) exposure to COVID-19; Z88.0 Allergy status to penicillin; Z88.8 Allergy status to other drugs, medicaments and biological substances
CPT/HCPCS: 36415; 38222; 71045; 77012; 80053; 80156; 80164; 81000; 82947; 83605; 85007; 85025; 85027; 85045; 85055; 85610; 85730; 87040; 87088; 87636

== ENCOUNTER 2022-10-14 08:17 | Emergency (ER) | payer MEDICAID ==
[~2022-10-14] VITALS: Ht 157 cm; Wt 54.0 kg
[~2022-10-14 08:17] MED LIST changes: +CARB200T6 PO; +DIVA500T15 PO; +LEVO75TA6 PO; +RISP3TAB62 PO; +SERT-414 PO; +TRAZ150T72 PO
--- NOTE | 2022-10-14 08:32 | ED General ---
General Chief Complaint: Neurological Problems Stated Complaint: WEAKNESS Source of Information: EMS Exam Limitations: Physical Impairments History of Present Illness Date Seen by Provider: Oct 14, 2022 Time Seen by Provider: 08:31 Initial Comments Patient is a 57-year-old intellectually disabled female brought from home after caregiver called regarding apparently generalized weakness. History is limited at the time of presentation as the patient is not really talking at all. She occasionally will say a yes or no. She is alert, eyes open, following commands. According to the medical record, recent hospitalization within the last week; patient was in for thrombocytopenia/pancytopenia and weakness. She had a bone marrow biopsy which I have reviewed and was nonspecific. Suspicion for some process that is actually causing the pancytopenia other than bone marrow suppression or stem cell malfunction. 0950 Patient's caregiver arrived and states that since Kyung was discharged home she has continued to get weaker and weaker. Whereas normally she is able to get up and around, ambulatory and take care of her own toileting needs she has not been doing this in the last 24 hours. They cannot get her to really eat or drink. No BM in 2-3 days. She normally is able to talk but has not really talk much in the last 24 hours as well. Concern for her declining ability to function. She is requiring max assistance from her caregivers at home now. Timing/Duration: Other (unknown) Allergies and Home Medications Allergies Coded Allergies: Penicillins (Verified Allergy, Unknown, 12/20/15) diphenhydramine HCl (Verified Allergy, Unknown, 12/20/15) Uncoded Allergies: chlorine (Allergy, Unknown, 12/20/15) Patient Home Medication List Home Medication List Reviewed: Yes Carbamazepine (Carbamazepine) 200 Mg Tablet, 200 MG PO BID, (Reported) Entered as Reported by: ELAHM GOMEZ on 10/08/22 08 Divalproex Sodium (Divalproex Sodium ER) 500 Mg Tab.er.24h, 500 MG PO DAILY, (Reported) Entered as Reported by: Tootie Marie on 10/05/221851 Divalproex Sodium (Divalproex Sodium ER) 500 Mg Tab.er.24h, 1,000 MG PO HS, (Reported) Entered as Reported by: Tootie Marie on 10/05/221851 Levothyroxine Sodium (Levothyroxine Sodium) 75 Mcg Tablet, 75 MCG PO DAILY, (Reported) Entered as Reported by: Tootie Marie on 10/05/221851 Oxybutynin Chloride (Oxybutynin Chloride) 5 Mg Tablet, 5 MG PO DAILY, (Reported) Entered as Reported by: Tootie Marie on 10/05/221851 Risperidone (Risperidone) 3 Mg Tablet, 3 MG PO BID, (Reported) Entered as Reported by: Tootie Marie on 10/05/221851 Sertraline HCl (Sertraline HCl) 100 Mg Tablet, 100 MG PO DAILY, (Reported) Entered as Reported by: Tootie Marie on 10/05/221851 Trazodone HCl (Trazodone HCl) 150 Mg Tablet, 150 MG PO HS, (Reported) Entered as Reported by: Tootie Marie on 10/05/221851 Review of Systems Review of Systems Constitutional: see HPI Unable to obtain HPI, review of systems from the patient's secondary to her intellectual disability and overall decline in function in the last several days. Past [facility] Hx Immunizations Up To Date First/Initial COVID19 Vaccinat: 2020 Second COVID19 Vaccination José Antonio: 2020 Third COVID19 Vaccination Date: 2020 Past Medical History Surgery/Hospitalization HX: MR, SCHITZOPHRENIA Seizure Disorder Reproductive Disorders: No Physical Exam Vital Signs Vital Signs - First Documented 10/14/22 08:20 Pulse 71 Resp 16 B/P (MAP) 156/96 (116) O2 Delivery Room Air Capillary Refill : Height, Weight, BMI Height: 5'1.00" Weight: 168lbs. 6.0oz. 76.241039ol; 10.18 BMI Method:Stated General Appearance: Anxious (tremoring), Thin Eyes: Bilateral Eye Normal Inspection, Bilateral Eye PERRL, Bilateral Eye EOMI HEENT: PERRL/EOMI, TMs Normal, Pharynx Normal, Moist Mucous Membranes Neck: Full Range of Motion, Normal Inspection, Supple Respiratory: Lungs Clear, Normal Breath Sounds, No Accessory Muscle Use, No Respiratory Distress Cardiovascular: Regular Rate, Rhythm Gastrointestinal: Normal Bowel Sounds, Soft, Guarding, Tenderness Extremity: Normal Inspection, Normal Range of Motion Neurologic/Psychiatric: Alert, Normal Mood/Affect, Other (not speaking; seems to follow commands) Skin: Normal Color, Warm/Dry Progress/Results/Core Measures Suspected Sepsis SIRS Temperature: Pulse: Respiratory Rate: Laboratory Tests 10/14/22 08:57: White Blood Count 2.5L Blood Pressure / Mean: Laboratory Tests 10/14/22 08:57: Creatinine 1.04, Platelet Count 37*L, Total Bilirubin 0.2 Results/Orders Lab Results Laboratory Tests Test 10/14/22 08:24 10/14/22 08:47 10/14/22 08:57 10/14/22 09:36 Range/Units Glucometer 95 70-110 MG/DL White Blood Count 2.5 L 4.3-11.0 10^3/uL Red Blood Count 3.41 L 3.80-5.11 10^6/uL Hemoglobin 9.9 L 11.5-16.0 g/dL Hematocrit 32 L 35-52 % Mean Corpuscular Volume 92 80-99 fL Mean Corpuscular Hemoglobin 29 25-34 pg Mean Corpuscular Hemoglobin Concent 31 L 32-36 g/dL Red Cell Distribution Width 17.2 H 10.0-14.5 % Platelet Count 37 *L 130-400 10^3/uL Mean Platelet Volume 13.3 H 9.0-12.2 fL Immature Granulocyte % (Auto) 0 % Neutrophils (%) (Auto) 41 L 42-75 % Lymphocytes (%) (Auto) 49 H 12-44 % Monocytes (%) (Auto) 8 0-12 % Eosinophils (%) (Auto) 2 0-10 % Basophils (%) (Auto) 0 0-10 % Neutrophils # (Auto) 1.0 L 1.8-7.8 10^3/uL Lymphocytes # (Auto) 1.2 1.0-4.0 10^3/uL Monocytes # (Auto) 0.2 0.0-1.0 10^3/uL Eosinophils # (Auto) 0.0 0.0-0.3 10^3/uL Basophils # (Auto) 0.0 0.0-0.1 10^3/uL Immature Granulocyte # (Auto) 0.0 0.0-0.1 10^3/uL Percent Immature Platelet Fraction 7.1 0.0-7.6 % Sodium Level 150 H 135-145 MMOL/L Potassium Level 4.7 3.6-5.0 MMOL/L Chloride Level 110 H 98-107 MMOL/L Carbon Dioxide Level 29 21-32 MMOL/L Anion Gap 11 5-14 MMOL/L Blood Urea Nitrogen 30 H 7-18 MG/DL Creatinine 1.04 0.60-1.30 MG/DL Estimat Glomerular Filtration Rate 63 BUN/Creatinine Ratio 29 Glucose Level 69 L 70-105 MG/DL Calcium Level 9.4 8.5-10.1 MG/DL Corrected Calcium 9.9 8.5-10.1 MG/DL Total Bilirubin 0.2 0.1-1.0 MG/DL Aspartate Amino Transf (AST/SGOT) 58 H 5-34 U/L Alanine Aminotransferase (ALT/SGPT) 71 H 0-55 U/L Alkaline Phosphatase 105 40-136 U/L Total Protein 7.1 6.4-8.2 GM/DL Albumin 3.4 3.2-4.5 GM/DL Lipase 39 8-78 U/L Valproic Acid (Depakene) Level 54.7 50.0-100.0 UG/ML Carbamazepine (Tegretol) Level 6.4 4.0-12.0 UG/ML Urine Color YELLOW Urine Clarity CLEAR Urine pH 7.0 5-9 Urine Specific Virgin 1.015 L 1.016-1.022 Urine Protein NEGATIVE NEGATIVE Urine Glucose (UA) NEGATIVE NEGATIVE Urine Ketones NEGATIVE NEGATIVE Urine Nitrite NEGATIVE NEGATIVE Urine Bilirubin NEGATIVE NEGATIVE Urine Urobilinogen 0.2 < = 1.0 MG/DL Urine Leukocyte Esterase NEGATIVE NEGATIVE Urine RBC (Auto) NEGATIVE NEGATIVE Urine RBC NONE /HPF Urine WBC NONE /HPF Urine Squamous Epithelial Cells 0-2 /HPF Urine Crystals NONE /LPF Urine Bacteria NEGATIVE /HPF Urine Casts PRESENT /LPF Urine Hyaline Casts 2-5 H /LPF Urine Mucus NEGATIVE /LPF Urine Culture Indicated NO Urine Opiates Screen NEGATIVE NEGATIVE Urine Oxycodone Screen NEGATIVE NEGATIVE Urine Methadone Screen NEGATIVE NEGATIVE Urine Propoxyphene Screen NEGATIVE NEGATIVE Urine Barbiturates Screen NEGATIVE NEGATIVE Ur Tricyclic Antidepressants Screen NEGATIVE NEGATIVE Urine Phencyclidine Screen NEGATIVE NEGATIVE Urine Amphetamines Screen NEGATIVE NEGATIVE Urine Methamphetamines Screen NEGATIVE NEGATIVE Urine Benzodiazepines Screen NEGATIVE NEGATIVE Urine Cocaine Screen NEGATIVE NEGATIVE Urine Cannabinoids Screen NEGATIVE NEGATIVE Test 10/14/22 11:00 10/14/22 12:04 Range/Units Thyroid Stimulating Hormone (TSH) 5.77 H 0.35-4.94 UIU/ML Free Thyroxine 1.05 0.70-1.48 NG/DL Glucometer 48 *L 70-110 MG/DL My Orders Orders - KATHIA TITUS MD Ed Iv/Invasive Line Start (10/14/22 08:42) Cbc With Automated Diff (10/14/22 08:42) Comprehensive Metabolic Panel (10/14/22 08:42) Lipase (10/14/22 08:42) Drug Screen Stat (Urine) (10/14/22 08:42) Valproic Acid (10/14/22 08:42) Carbamazepine (Tegretol) (10/14/22 08:42) Urinalysis (10/14/22 08:42) Ns Iv 1000 Ml (Sodium Chloride 0.9%) (10/14/22 09:24) Ct Abdomen/Pelvis W (10/14/22 09:52) Iohexol Injection (Omnipaque 350 Mg/Ml 1 (10/14/22 10:15) Ns (Ivpb) (Sodium Chloride 0.9% Ivpb Bag (10/14/22 10:15) Thyroid Stimulating Hormone (10/14/22 11:23) Free T4 (Free Thyroxine) (10/14/22 11:23) Triiodothryonine T3 Free (10/14/22 11:23) Accucheck Stat ONCE (10/14/22 11:54) General/Regular (10/14/22 Lunch) Medications Given in ED Current Medications Medications Dose Ordered Sig/Zachariah Route Start Time Stop Time Status Last Admin Dose Admin Iohexol 100 ml ONCE ONCE IV 10/14/22 10:15 10/14/22 10:16 DC 10/14/22 10:28 62 ML Sodium Chloride 100 ml ONCE ONCE IV 10/14/22 10:15 10/14/22 10:16 DC 10/14/22 10:28 80 ML Vital Signs/I&O 10/14/22 08:20 Pulse 71 Resp 16 B/P (MAP) 156/96 (116) O2 Delivery Room Air Capillary Refill : Progress Note #1: Time: 11:21 Progress Note Patient seen and evaluated by me, 57-year-old with chief complaint generalized weakness and decline in function. Evaluation today includes physical exam, CBC, Chem-12, urine drug screen, urinalysis. Patient's vital signs are stable. Clinically she is not really talking but she is alert and following commands. Oral mucosa moist. Not tachycardic, she is actually somewhat hypo-thermic (core temp 92). SHe does not like abdominal palpation, however no distension/point tenderness. Differential diagnosis based on history and physical exam includes sepsis, anemia, dehydration, urinary tract infection, acute intra-abdominal pathology such as appendicitis or bowel obstruction Labs are reviewed and are basically identical to discharge labs from a week ago. She has pancytopenia. She is slightly hypernatremic on chemistry. Drug screen is negative, UA does not reveal infection. I did pursue based on abdominal exam CT scan of the abdomen and pelvis. She was found to have fecal impaction and no other acute abnormalities. Digital rectal exam was pursued, patient had a huge amount of stool in the rectal vault. I spent about 15 to 20 minutes disimpacting the patient. She tolerated it well. She did have a little bit of bloody mucus at the end of disimpaction. Copious amount of stool evacuated. Patient has pending follow-up this week with oncology. Recommend trying to push fluids for the patient at home. She was given 1 L of normal saline here in the emergency department. She will need further evaluation and management as an outpatient however is stable for discharge from an emergency department perspective. I did add on thyroid function studies as I cannot see that these have been obtained through the hospital in recent weeks. This may be contributing to her hypothermia. We will wait for fluids to finish and thyroid studies to result before discharge. Findings and plan of care have been communicated to the caregiver at the bedside. She is comfortable with the plan of care, all questions are sought and answered Progress Note #2: Time: 12:58 Progress Note Patient's thyroid function panel shows a slightly increased TSH with normal T4. She will need to follow-up with primary care regarding her thyroid replacement. She is reevaluated just prior to discharge, much more alert and perky since disimpaction and IV fluids. She has eaten a little bit. She actually answered me when I asked her if she was doing okay she said "yes" and it seemed appropr iate. Will be discharged home with her scheduled follow-up with primary care and oncology. Diagnostic Imaging Diagonstic Imaging: CT Comments [facility] [place], [place] NAME: AIDAN TRACEY [facility] REC#: [id number] PT STATUS: REG ER : 1965 PHYSICIAN: KATHIA TITUS MD ADMIT DATE: 10/14/22/ER Draft Date of Exam:10/14/22 CT ABDOMEN/PELVIS W CLINICAL INDICATION: Patient with abdominal pain and tenderness upon palpation. EXAM: Axial CT scan of the abdomen and pelvis performed with 62 cc of Omnipaque 350 IV contrast. Sagittal and coronal reformatted images were created. Auto Exposure Controls were utilized during the CT exam to meet ALARA standards for radiation dose reduction. COMPARISON: CT scan of the abdomen and pelvis with contrast dated 12/20/2015. FINDINGS: There is mild atelectasis involving both lung bases. Chronic bilateral L5 spondylolysis is seen with grade 2 anterolisthesis of L5 on S1. This was noted on the prior study as well. The liver, spleen, pancreas, and adrenal glands are unremarkable. Cholecystectomy changes are again noted. Prominent common bile duct is again seen which currently measures 1.3 cm in greatest axial dimension compared to the prior study measured at 1.5 cm. There is no obstructive lesion seen. There is no intrahepatic ductal dilation. The adrenal glands are unremarkable. Both kidneys are unremarkable with no hydronephrosis or mass. There is fluid within the bladder but the bladder is otherwise unremarkable. The uterus and adnexal structures are unremarkable. There is a moderate to large amount of stool within the rectum colon region. There is a small to moderate amount of stool throughout the rest of the colon. There is no intestinal obstruction. The stomach is decompressed with wall thickening which may related to incomplete distention. There is prominence of the duodenum with wall thickening. The appendix is not visualized which may be from postop changes. There is no abnormality in the region of the expected area of the appendix which appears truncated. There is no intra-abdominal free air or free fluid. There is no lymphadenopathy. The extraabdominal and extrapelvic soft tissue structures are unremarkable. IMPRESSION: 1: There is a large amount of stool within the rectum region. There is a small to moderate amount of stool throughout the rest of the colon. These findings may be related to constipation. There is no intestinal obstruction. 2: The remainder of this exam shows no acute abdominal or pelvic process. 3: Cholecystectomy. Again noted is a prominent common bile duct with no obstructive lesion. Dictated on workstation # [id number] Dict: 10/14/22 1036 Trans: 10/14/22 1052 [id number] Interpreted by: MALINI TRIVEDI MD Electronically signed by: Departure Impression Primary Impression: General weakness Additional Impressions: Fecal impaction in rectum Pancytopenia Hypothermia Qualified Codes: T68.XXXA - Hypothermia, initial encounter Disposition: HOME, SELF-CARE Condition: Improved Departure-Patient Inst. Decision time for Depature: 12:41 Referrals: KIRAN HORTA MD (PCP/Family) Primary Care Physician SHARMIN LOW MD Patient Instructions: Weakness ED, Fecal Impaction (DC) Add. Discharge Instructions: Encourage fluids so that she stays well hydrated. Continue her daily medications as prescribed. Please keep her follow up appointments as scheduled for this week. Monitor for fever, worsening symptoms and if any of these develop, please bring her back to the Emergency Department for re-evaluation, Copy Copies To 1: KIRAN HORTA MD Copies To 2: SHARMIN LOW MD, KATHRYN M MD Oct 14, 2022 08:32
[2022-10-14 09:03] LABS: BASOPHILS % (AUTO) 0 % (0-10); EOSINOPHILS % (AUTO) 2 % (0-10); HEMATOCRIT 32 % (35-52); HEMOGLOBIN 9.9 g/dL (11.5-16.0); LYMPHOCYTES # (AUTO) 1.2 10^3/uL (1.0-4.0); LYMPHOCYTES % (AUTO) 49 % (12-44); MEAN CORPUSCULAR HEMOGLOBIN 29 pg (25-34); MEAN CORPUSCULAR HGB CONC 31 g/dL (32-36); MEAN CORPUSCULAR VOLUME 92 fL (80-99); MEAN PLATELET VOLUME 13.3 fL (9.0-12.2); MONOCYTES # (AUTO) 0.2 10^3/uL (0.0-1.0); MONOCYTES % (AUTO) 8 % (0-12); NEUTROPHILS % (AUTO) 41 % (42-75); WHITE BLOOD COUNT 2.5 10^3/uL (4.3-11.0)
[2022-10-14 09:05] LABS: PLATELET COUNT 37 10^3/uL (130-400)
[2022-10-14 09:15] LABS: ALBUMIN 3.4 GM/DL (3.2-4.5)
[2022-10-14 09:16] LABS: POTASSIUM 4.7 MMOL/L (3.6-5.0)
[2022-10-14 09:17] LABS: CALCIUM 9.4 MG/DL (8.5-10.1)
[2022-10-14 09:18] LABS: TOTAL PROTEIN 7.1 GM/DL (6.4-8.2)
[2022-10-14 09:20] LABS: BILIRUBIN,TOTAL 0.2 MG/DL (0.1-1.0)
[2022-10-14 09:22] LABS: CREATININE SERUM 1.04 MG/DL (0.60-1.30)
[2022-10-14] MEDS ORDERED: NS IV 1000 ML 1,000 ML IV STA (09:24)
[2022-10-14 09:31] LABS: VALPROIC ACID 54.7 UG/ML (50.0-100.0)
[2022-10-14 09:32] LABS: CARBAMAZEPINE (TEGRETOL) 6.4 UG/ML (4.0-12.0)
[2022-10-14 09:40] LABS: BILIRUBIN,URINE NEGATIVE (NEGATIVE); CLARITY,URINE CLEAR; COLOR,URINE YELLOW; GLUCOSE, URINE (UA) NEGATIVE (NEGATIVE); KETONES,URINE NEGATIVE (NEGATIVE); LEUKOCYTE ESTERASE ,URINE NEGATIVE (NEGATIVE); NITRITE,URINE NEGATIVE (NEGATIVE); PROTEIN,URINE NEGATIVE (NEGATIVE)
[2022-10-14 09:48] LABS: BACTERIA,URINE NEGATIVE /HPF; SQUAMOUS EPITHELIAL CELL,UR 0-2 /HPF
[2022-10-14 09:56] LABS: AMPHETAMINE SCREEN, URINE NEGATIVE (NEGATIVE); BARBITURATE SCREEN URINE NEGATIVE (NEGATIVE); BENZODIAZEPINES SCREEN URINE NEGATIVE (NEGATIVE); CANNABINOID SCREEN, URINE NEGATIVE (NEGATIVE); COCAINE SCREEN URINE NEGATIVE (NEGATIVE); METHADONE STAT NEGATIVE (NEGATIVE); OPIATE SCREEN URINE NEGATIVE (NEGATIVE); OXYCODONE STAT NEGATIVE (NEGATIVE); PROPOXYPHENE STAT NEGATIVE (NEGATIVE); TRICYCLIC ANTIDEPRESSANTS SCRE NEGATIVE (NEGATIVE)
[2022-10-14] MEDS ORDERED: NS 100 ML (IVPB) BAG IV ONE (10:15)
[2022-10-14] MEDS ORDERED: IOHEXOL 350 MG/ML 100 ML (OMNIPAQUE 350) VIAL IV ONE (10:15)
--- NOTE | 2022-10-14 10:54 | Diagnostic Imaging Report ---
CLINICAL INDICATION: Patient with abdominal pain and tenderness upon palpation. EXAM: Axial CT scan of the abdomen and pelvis performed with 62 cc of Omnipaque 350 IV contrast. Sagittal and coronal reformatted images were created. Auto Exposure Controls were utilized during the CT exam to meet ALARA standards for radiation dose reduction. COMPARISON: CT scan of the abdomen and pelvis with contrast dated 12/20/2015. FINDINGS: There is mild atelectasis involving both lung bases. Chronic bilateral L5 spondylolysis is seen with grade 2 anterolisthesis of L5 on S1. This was noted on the prior study as well. The liver, spleen, pancreas, and adrenal glands are unremarkable. Cholecystectomy changes are again noted. Prominent common bile duct is again seen which currently measures 1.3 cm in greatest axial dimension compared to the prior study measured at 1.5 cm. There is no obstructive lesion seen. There is no intrahepatic ductal dilation. The adrenal glands are unremarkable. Both kidneys are unremarkable with no hydronephrosis or mass. There is fluid within the bladder but the bladder is otherwise unremarkable. The uterus and adnexal structures are unremarkable. There is a moderate to large amount of stool within the rectum colon region. There is a small to moderate amount of stool throughout the rest of the colon. There is no intestinal obstruction. The stomach is decompressed with wall thickening which may related to incomplete distention. There is prominence of the duodenum with wall thickening. The appendix is not visualized which may be from postop changes. There is no abnormality in the region of the expected area of the appendix which appears truncated. There is no intra-abdominal free air or free fluid. There is no lymphadenopathy. The extraabdominal and extrapelvic soft tissue structures are unremarkable. IMPRESSION: 1: There is a large amount of stool within the rectum region. There is a small to moderate amount of stool throughout the rest of the colon. These findings may be related to constipation. There is no intestinal obstruction. 2: The remainder of this exam shows no acute abdominal or pelvic process. 3: Cholecystectomy. Again noted is a prominent common bile duct with no obstructive lesion. Dictated by: Dictated on workstation # [id number]
[2022-10-14 12:08] LABS: FREE T4 (FREE THYROXINE) 1.05 NG/DL (0.70-1.48)
[2022-10-14 13:05] VITALS: BP 153/93
== END 2022-10-14 13:05 | disposition home or self-care (01) ==
LOC: EDUNIT# 08:17 → ER 08:18
DX: D61.818 Other pancytopenia (principal); K56.41 Fecal impaction; T68.XXXA Hypothermia, initial encounter; E87.1 Hypo-osmolality and hyponatremia; Z28.310 Unvaccinated for COVID-19
CPT/HCPCS: 36415; 74177; 80053; 80156; 80164; 80306; 81000; 82947; 83690; 84439; 84443; 84481; 85025

== ENCOUNTER 2022-10-18 12:12 | Outpatient (RCR) | payer MEDICAID | END 2022-11-06 | disposition home or self-care (01) | LOC: ONC 12:12 | PROVIDERS: ATTEND Internal Medicine Hematology & Oncology | DX: Z53.9 Procedure and treatment not carried out, unspecified reason (principal) ==

== ENCOUNTER → 2022-10-23 | Outpatient (CLI) | payer MEDICAID ==
--- NOTE | 2022-10-23 12:25 | Diagnostic Imaging Report ---
EXAMINATION: Right ankle radiographs, 3 views. COMPARISON: May 25, 2022. HISTORY: 57-year-old female, right ankle pain and swelling. FINDINGS: There is an oblique mildly displaced distal fibular fracture above the level of the tibial plafond. The alignment of the ankle mortise is unremarkable. There is no tibiotalar joint effusion. There is no additional identified acute fracture. The joint spaces are well preserved. There is no identified radiopaque foreign body. There is reticulation of the subcutaneous fat both medially and laterally at the level of the distal tibia and fibula which may reflect subcutaneous edema. IMPRESSION: 1. Mildly displaced acute distal fibular diaphyseal fracture above the level of the tibial plafond. 2. Normal alignment of the ankle mortise. 3. No additional identified acute fracture. Dictated by: Dictated on workstation # [id number]
--- NOTE | 2022-10-23 16:57 | Diagnostic Imaging Report ---
INDICATION: Right leg pain. TECHNIQUE: AP and lateral views of the right tibia and fibula were obtained. FINDINGS: There is an oblique fracture of the distal fibula just above the ankle joint level without displacement. There is no other bony abnormality seen. Proximal portions of the tibia and fibula are intact. IMPRESSION: Acute distal fibular fracture without significant displacement with oblique orientation. No other focal abnormality. Dictated by: Dictated on workstation # [id number]
== END ==
LOC: RAD 11:41
PROVIDERS: ATTEND Family Medicine
DX: M84.463A Pathological fracture, right fibula, initial encounter for fracture (principal)
CPT/HCPCS: 73590; 73610

== ENCOUNTER 2022-12-06 10:54 | Outpatient (RCR) | payer MEDICAID ==
[2022-12-06 11:12] LABS: BASOPHILS % (AUTO) 0 % (0-10); MONOCYTES # (AUTO) 0.4 10^3/uL (0.0-1.0)
[2022-12-06 11:14] LABS: EOSINOPHILS # (AUTO) 0.1 10^3/uL (0.0-0.3); EOSINOPHILS % (AUTO) 1 % (0-10); HEMATOCRIT 35 % (35-52); HEMOGLOBIN 10.9 g/dL (11.5-16.0); LYMPHOCYTES # (AUTO) 1.6 10^3/uL (1.0-4.0); LYMPHOCYTES % (AUTO) 33 % (12-44); MEAN CORPUSCULAR HEMOGLOBIN 31 pg (25-34); MEAN CORPUSCULAR HGB CONC 31 g/dL (32-36); MEAN CORPUSCULAR VOLUME 99 fL (80-99); MEAN PLATELET VOLUME 10.8 fL (9.0-12.2); MONOCYTES % (AUTO) 8 % (0-12); NEUTROPHILS # (AUTO) 2.9 10^3/uL (1.8-7.8); NEUTROPHILS % (AUTO) 58 % (42-75); PLATELET COUNT 109 10^3/uL (130-400)
[2022-12-06 11:27] LABS: ALBUMIN 3.6 GM/DL (3.2-4.5); BILIRUBIN,TOTAL 0.2 MG/DL (0.1-1.0); CALCIUM 9.3 MG/DL (8.5-10.1); CREATININE SERUM 1.1 MG/DL (0.60-1.30); POTASSIUM 3.9 MMOL/L (3.6-5.0); TOTAL PROTEIN 7.5 GM/DL (6.4-8.2)
== END 2022-12-07 ==
LOC: ONC 10:54
PROVIDERS: ATTEND Internal Medicine Hematology & Oncology
DX: D61.818 Other pancytopenia (principal); F70 Mild intellectual disabilities; M79.89 Other specified soft tissue disorders; Z86.16 Personal history of COVID-19
CPT/HCPCS: 36415; 80053; 82728; 83540; 83550; 84443; 85025

== ENCOUNTER 2023-03-11 11:24 | Outpatient (RCR) | payer MEDICAID ==
[2023-03-11 12:02] LABS: BASOPHILS % (AUTO) 0 % (0-10); EOSINOPHILS # (AUTO) 0.1 10^3/uL (0.0-0.3); EOSINOPHILS % (AUTO) 1 % (0-10); HEMATOCRIT 31 % (35-52); LYMPHOCYTES % (AUTO) 53 % (12-44); MEAN CORPUSCULAR HEMOGLOBIN 30 pg (25-34); MEAN CORPUSCULAR HGB CONC 32 g/dL (32-36); MEAN CORPUSCULAR VOLUME 92 fL (80-99); MEAN PLATELET VOLUME 10.5 fL (9.0-12.2); MONOCYTES # (AUTO) 0.4 10^3/uL (0.0-1.0); MONOCYTES % (AUTO) 11 % (0-12); NEUTROPHILS # (AUTO) 1.3 10^3/uL (1.8-7.8); NEUTROPHILS % (AUTO) 34 % (42-75); PLATELET COUNT 200 10^3/uL (130-400); WHITE BLOOD COUNT 3.7 10^3/uL (4.3-11.0)
[2023-03-11 12:18] LABS: ALBUMIN 3.5 GM/DL (3.2-4.5); BILIRUBIN,TOTAL 0.2 MG/DL (0.1-1.0); CALCIUM 8.9 MG/DL (8.5-10.1); CREATININE SERUM 0.87 MG/DL (0.60-1.30); POTASSIUM 3.9 MMOL/L (3.6-5.0); TOTAL PROTEIN 6.8 GM/DL (6.4-8.2)
== END 2023-04-08 | disposition home or self-care (01) ==
LOC: ONC 11:24
PROVIDERS: ATTEND Internal Medicine Hematology & Oncology
DX: D61.818 Other pancytopenia (principal); F70 Mild intellectual disabilities; Z78.0 Asymptomatic menopausal state
CPT/HCPCS: 80053; 82728; 83540; 83550; 85025